=== PATIENT | male | born 1940 | race Caucasian/White ===

== ENCOUNTER 2023-09-02 12:09 | Outpatient (AMB) | payer OTHER, SELFPAY ==
--- NOTE | 2023-09-02 12:11 | MHC.OFFVIS ---
Intake Vital Signs 09/02/23 12:12 Height 5 ft 5 in Weight 206 lb BMI 34.3 BP 149/74 H Blood Pressure Location Rt brachial Position Sitting Pulse 57 Pulse Source Monitor Intake Visit Reasons: difficulty swallowing Intake Note: Patient states having trouble swallowing has been off and on for a couple years. He is having trouble eating and scared he might choke, less appetite. 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 Accompanied by his daughter Barbara. Reports that has had intermittent dysphagia for almost 10 years now and used to get endoscopic dilations back at [facility] - last one was > 5 years ago. Trouble is mostly with solids. Able to drink liquids fine. Gags with some certain solids but no vomiting. Has been avoiding certain foods brennen meat to avoid food obstruction. Had some weight loss around 5-6 lbs in 3 months. Patient previously used to get care at [facility], then moved to [place] for a couple of years, and has only returned 6 months ago. Some medical history is unclear, including indication for Eliquis. Daughter mentions patient has a history of stroke and was started on Eliquis thereafter ? AFib. He also has coronary artery disease with history of coronary stent placement, but has not established care with a outside solar sales consultant locally yet. [facility] Medical History (Updated 09/02/23 @ 12:49 by Samara Briscoe MD) Chronic anticoagulation Peripheral vascular disease HIV disease Review of Systems Const All systems reviewed & are unremarkable except as noted in HPI and below Physical Exam Vital Signs: Last Vital Signs Pulse 57 09/02/23 12:12 BP 149/74 H 09/02/23 12:12 BMI result Body Mass Index 34.3 Const General: cooperative, healthy appearing and no acute distress Orientation/consciousness: patient oriented x3 Chest Chest palpation & inspection: normal inspection of the chest GI Inspection: Yes normal to inspection Neuro General: patient oriented x3 and gait normal Extrem General: Yes normal to inspection Assessment & Plan Assessment & Plan (1) Dysphagia: Code(s): R13.10 - Dysphagia, unspecified (2) Coronary artery disease: Code(s): I25.10 - Atherosclerotic heart disease of [place] coronary artery without angina pectoris Plan Ddx include esophageal stricture, web, ring, esophagitis, dysmotility, EoE. Plan: - Barium swallow - EGD - will need to be booked after seen and cleared by cardiology - Referral to Cards requested today Orders: Orders FL barium swallow Today R13.10 - Dysphagia, unspecified Complete Blood Count no Diff Today R13.10 - Dysphagia, unspecified Referrals Cardiology Referral I25.10 - Atherosclerotic heart disease of [place] coronary artery without angina pectoris Coding Level of Care Code New Pt Level 4 (74561) Diagnoses Dysphagia R13.10 Coronary artery disease I25.10
[2023-09-02 12:12] VITALS: BP 149/74; PULSE 57; BMI 34.3
== END 2023-09-02 13:11 | disposition home or self-care (01) ==
PROVIDERS: PCP Physician Assistant; Visit Provider Internal Medicine
DX: R13.10 Dysphagia, unspecified (principal); I25.10 Atherosclerotic heart disease of native coronary artery without angina pectoris
CPT/HCPCS: 99204

== ENCOUNTER → 2023-09-02 12:09 | Outpatient (BNVA) | payer OTHER, SELFPAY | PROVIDERS: PCP Physician Assistant; Visit Provider Internal Medicine | DX: I25.10 Atherosclerotic heart disease of native coronary artery without angina pectoris (principal); R13.10 Dysphagia, unspecified | CPT/HCPCS: 99202 ==

== ENCOUNTER 2023-09-21 13:51 | Outpatient (AMB) | payer OTHER, SELFPAY ==
--- NOTE | 2023-09-21 13:52 | A.OFFVIS_ITS ---
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 Required: No Accompanied by: Daughter Allergies No Known Allergies Allergy (Verified 09/21/23 13:56) Medication List - Last Reconciled 09/21/23 by Joseph Shafer MD albuterol sulfate 90 mcg/actuation inhalation apixaban (Eliquis) 5 mg PO BID aspirin 81 mg PO DAILY benzonatate 100 mg PO TID PRN lyypmiban-kfuttzgk-igurfgz ala 50-200-25 mg (Biktarvy) 1 tab PO DAILY bimatoprost 0.01% (Lumigan) drps ophthalmic (eye) brimonidine-timolol 0.2-0.5 % drps ophthalmic (eye) ezetimibe 10 mg PO DAILY hydroxyzine HCl 25 mg PO TID metoprolol succinate ER 25 mg PO DAILY montelukast 10 mg PO DAILY nitroglycerin mg sublingual omega 5-xjo-gvl-fish oil 300-1,000 mg (Fish Oil) caps PO omeprazole 40 mg PO DAILY prednisone 20 mg PO BID rosuvastatin 40 mg PO DAILY sennosides (senna) 17.2 mg PO DAILY HPI HPI Comments History of Present Illness Details Mor is here for consultation regarding coronary disease. It seems that he used to live locally but then moved to [place] for a few years and then back again here. He is presenting with his daughter. [facility] records reviewed. History of coronary disease. In 2013, he had anterior STEMI. Underwent cardiac catheterization and LAD stenting. He also had residual disease in the circumflex and right coronary artery. Also described to have peripheral arterial disease. Other comorbidities including hypertension, high lipids and HIV. He also has atrial flutter on anticoagulation. Overall, generally feels okay. He does get some discomfort in the chest randomly, could be GI but not clear. However, not clear for exertional angina. 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 He has been seen by GI for dysphagia and needs workup for the same. They requested cardiology clearance. [facility] Medical History (Updated 09/21/23 @ 14:35 by Joseph Shafer MD) Chronic anticoagulation Peripheral vascular disease HIV disease Surgical History (Updated 09/21/23 @ 13:57 by Capri Olson) Hx of cardiac catheterization Family History (Updated 09/21/23 @ 13:58 by Capri Olson) Mother No problems noted. Father No problems noted. Social History (Updated 09/21/23 @ 13:58 by Capri Olson) Alcohol intake: current Alcohol intake frequency: holidays/special occasions only Patient Tobacco Use Status: Never used Tobacco Review of Systems Const Denies weakness Eyes Denies loss of vision ENT Denies dizziness Card Denies chest pain, Denies chest pain with activity, Denies syncope, Denies rapid heart rate, Denies pedal edema, Denies edema, Denies leg edema, Denies lightheadedness, Denies palpitations, Denies dyspnea, Denies dyspnea on exertion and Denies orthopnea Resp Denies cough, Denies dyspnea, Denies dyspnea on exertion and Denies wheezing GI Denies hematochezia and Denies change in stool character Denies hematuria, Denies dysuria and Denies urinary frequency Musc Denies abnormal gait, Denies muscle cramps, Denies muscle weakness, Denies numbness, Denies radiating pain into limb and Denies tingling Skin/Breast Denies nail changes and Denies rash Neuro Denies Abnormal speech present, Denies abnormal gait, Denies dizziness, Denies syncope, Denies loss of vision, Denies memory loss, Denies numbness, Denies tingling and Denies weakness Psych Denies depression and Denies memory loss Endo Denies palpitations Aller/Immun Denies wheezing Physical Exam Vital Signs: Last Vital Signs Pulse 77 09/21/23 13:55 BP 130/80 09/21/23 13:55 BMI result Body Mass Index 34.5 Const General: comfortable and no acute distress Orientation/consciousness: patient oriented x3 HEENT Other: Unremarkable Head: Yes normal to inspection Neck Neck: Yes normal visual inspection Chest Chest palpation & inspection: normal inspection of the chest Resp Auscultation: clear to auscultation bilaterally Cardio Palpation: normal PMI Heart sounds: S1 normal heart sound present, S2 normal heart sound present, no gallops, no murmurs and no rubs GI Palpation (GI): Soft to palpation Back/Spine/Pelvis Other: unremarkable Skin General skin exam: no rashes or lesions noted Neuro General: patient oriented x3 Speech: No Abnormal speech present Extrem General: Yes normal to inspection Psych Mental Status: mental status grossly normal Office Procedures EKG Details: EKG with atrial flutter at 77/Min; right bundle-branch block pattern; old anterolateral/inferior infarct. [id number], Complete Assessment & Plan Assessment & Plan (1) Coronary artery disease: Code(s): I25.10 - Atherosclerotic heart disease of [place] coronary artery without angina pectoris Qualifiers: Associated angina: without angina Coronary Disease-Associated Artery/Lesion type: [place] artery Plan: Cardiac catheterization reviewed from 2013. Proximal LAD with 100% stenosis, status post PCI. Mid LAD had 40% stenosis. Mid circumflex with 70% stenosis and RCA with 50% stenosis. Clinically, no overt anginal-type symptoms. We will get an echocardiogram for cardiac function. Will need to get records from [place], including any recent ischemic workup with stress test extra. (2) Atrial flutter by electrocardiogram: Code(s): I48.92 - Unspecified atrial flutter Plan: Rate controlled on EKG. For meds, he is on metoprolol and Eliquis. No changes. Plan Will need to be review [place] records. Orders: Orders CA echo transthoracic complete Today I25.10 - Atherosclerotic heart disease of [place] coronary artery without angina pectoris, I48.92 - Unspecified atrial flutter Coding Level of Care Code New Pt Level 4 (37354) Diagnoses Coronary artery disease I25.10 Associated angina: without angina Coronary Disease-Associated Artery/Lesion type: [place] artery Atrial flutter by electrocardiogram I48.92 CPT Codes EKG - CPT: 09838-[id number], Complete ([id number])
[2023-09-21 13:55] VITALS: BP 130/80; PULSE 77; BMI 34.5
== END 2023-09-21 14:32 | disposition home or self-care (01) ==
PROVIDERS: PCP Physician Assistant; Visit Provider Internal Medicine
DX: I25.10 Atherosclerotic heart disease of native coronary artery without angina pectoris (principal); I48.92 Unspecified atrial flutter
CPT/HCPCS: 93010; 99204

== ENCOUNTER → 2023-09-21 13:51 | Outpatient (BNVA) | payer OTHER, SELFPAY | PROVIDERS: PCP Physician Assistant; Visit Provider Internal Medicine | DX: I25.10 Atherosclerotic heart disease of native coronary artery without angina pectoris (principal); I48.92 Unspecified atrial flutter | CPT/HCPCS: 93005; 99202 ==

== ENCOUNTER → 2023-10-14 08:55 | Outpatient (REF) | payer OTHER, SELFPAY ==
--- NOTE | 2023-10-14 08:58 | CA_ITS ---
Transthoracic Echocardiogram Patient (Last, First, Middle): Mor Martinez, Gender: Male Date of : 1940 Age: 82 Procedure Date: 10/14/2023 Procedure Type: Transthoracic Echocardiogram Location: OP Height: 162.56 cm Weight: 90.72 kg BSA: 1.96 m2 Heart Rate: bpm BP: 110 / 60 mmHg Excel Expert: LILLIE Referring MD: Joseph Shafer MD Symptoms: I25.10 - Atherosclerotic heart disease of [place] coronary artery without... Study Quality: Adequate w contrast Conclusions: - Normal left ventricular cavity size. There is moderately increased left ventricular wall thickness. The left ventricular systolic function is borderline reduced. The visually estimated ejection fraction is between 45-50%. - The apical anterior segment is hypokinetic. - The apex, apical septum, and mid anteroseptal segments are akinetic. - Mildly increased right ventricular cavity size. There is borderline right ventricular systolic function. - There is mild dilatation of the ascending aorta measuring 3.70 cm. Findings Procedure Information Contrast agent, definity, is being given per protocol without apparent complications. Left Ventricle Normal left ventricular cavity size. There is moderately increased left ventricular wall thickness. The left ventricular systolic function is borderline reduced. The visually estimated ejection fraction is between 45 50%. There is evidence of regional wall motion abnormalities. Abnormal diastolic function is noted. Spectral Doppler is indicative of an impaired relaxation filling pattern. Elevated filling pressures. Wall Motion Rest Echo Findings The apical anterior segment is hypokinetic. The apex, apical septum, and mid anteroseptal segments are akinetic. Right Ventricle Mildly increased right ventricular cavity size. There is borderline right ventricular systolic function. Atria The left atrium is mildly dilated. The right atrium is mildly dilated. Aortic Valve There is a normal trileaflet aortic valve. There is no aortic valve stenosis. There is trace (trivial) aortic valve regurgitation. Mild to moderate calcification of aortic valve. Mitral Valve There is mild mitral annular calcification. There is trace mitral valve regurgitation. There is no mitral valve stenosis. Pulmonic Valve Normal pulmonic valve structure and function. There is no pulmonic valve regurgitation. Tricuspid Valve Normal tricuspid valve structure. There is no tricuspid valve regurgitation. Tricuspid regurgitation envelope is inadequate for calculation of right ventricular systolic pressure. Normal right atrial pressure. Great Vessels There is mild dilatation of the ascending aorta measuring 3.70 cm. The visualized portions of the pulmonary artery and branches are normal. Venous The inferior vena cava is normal in size and collapses greater than 50% with inspiration. Pericardium/Pleural There is no evidence of pericardial effusion. Prior Study Comparison No prior study available for comparison. Measurements 2D Linear Measurements IVSd: 1.34 0.6-0.9/0.6-1.0 cm LVIDd: 4.60 3.9-5.3/4.2-5.9 cm LVIDd Index: 2.35 2.4-3.2/2.2-3.1 cm/m2 LVIDs: 3.24 2.0-3.6 cm LVPWd: 1.58 0.7-1.1 cm LA Diam: 4.80 2.7-3.8/3.0-4.0 cm LAIDs Index: 2.45 1.5-2.3 cm/m2 LV Mass: 341.04 67-162/88-224 g LV Mass Index: 174.00 43-95/49-115 g/m2 LVOT Diam: 2.10 3.0+(-)1.3 cm 2D Systolic Function EF 4C: 52.80 >55% EF 2C: 43.00 >55% EF BiP: 49.80 >55% Mitral Valve MV Pk E: 0.75 MV PK A: 0.80 MV Decel Time: 257.00 E/A: 0.90 E'Lateral: 5.26 E'Medial: 3.48 E/E' Med: 21.60 E/E' Lat: 14.30 PHT: 75.00 MVA PHT: 2.93 Decel [place]: 2.91 Aortic Valve AoV Pk Guevara: 1.88 AoV Mn Guevara: 1.33 AoV VTI: 0.41 AoV Pk Grad: 14.00 Aov Mn Grad: 8.00 DARLINE Cont.VTI: 2.53 LVOT LVOT Pk Guevara: 1.36 LVOT Mn Guevara: 0.90 LVOT VTI: 0.30 LVOT Pk Grad: 7.00 LVOT Mn Grad: 4.00 LVOT Diam: 2.10 LVOT Area: 3.46 Diastolic Function MV Pk E: 0.75 MV Pk A: 0.80 E/A: 0.90 E'Medial: 3.48 E/E' Med: 21.60 E' Laterial: 5.26 E/E' Lat: 14.30 Right Ventricle TAPSE (mm): 19.30 TVS' Guevara: 9.67 Great Vessels Aorta Sinus of Valsalva: 3.60 2.0-3.5 cm Ao Asc: 3.70 2.1-3.4 cm Pulmonary Valve PV Pk Guevara: 0.81 Peak PV Grad: 3.00 Updated in Other Vendor System with Status of Final Ajit Swift MD electronically signed on 10/19/2023 3:25:02 PM with status of Final
== END ==
LOC: HO.CARD 08:55
PROVIDERS: Visit Provider Internal Medicine
DX: I25.10 Atherosclerotic heart disease of native coronary artery without angina pectoris (principal); I48.92 Unspecified atrial flutter
CPT/HCPCS: 93306; Q9957

== ENCOUNTER → 2023-10-14 08:58 | Outpatient (BNV) | payer OTHER, SELFPAY | PROVIDERS: Visit Provider Internal Medicine Cardiovascular Disease | DX: I25.10 Atherosclerotic heart disease of native coronary artery without angina pectoris (principal) | CPT/HCPCS: 93306 ==

== ENCOUNTER 2023-10-19 14:41 | Outpatient (AMB) | payer OTHER, SELFPAY ==
--- NOTE | 2023-10-19 14:48 | A.OFFVIS_ITS ---
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 Accompanied by: Daughter Allergies No Known Allergies Allergy (Verified 10/19/23 14:48) Medication List - Last Reconciled 10/19/23 by Joseph Shafer MD albuterol sulfate 90 mcg/actuation inhalation apixaban (Eliquis) 5 mg PO BID aspirin 81 mg PO DAILY benzonatate 100 mg PO TID PRN dwecrtcqb-jsidcybi-axpkhvj ala 50-200-25 mg (Biktarvy) 1 tab PO DAILY bimatoprost 0.01% (Lumigan) drps ophthalmic (eye) brimonidine-timolol 0.2-0.5 % drps ophthalmic (eye) ezetimibe 10 mg PO DAILY hydroxyzine HCl 25 mg PO TID metoprolol succinate ER 25 mg PO DAILY montelukast 10 mg PO DAILY nitroglycerin mg sublingual omega 8-dwf-ajd-fish oil 300-1,000 mg (Fish Oil) caps PO omeprazole 40 mg PO DAILY prednisone 20 mg PO BID rosuvastatin 40 mg PO DAILY sennosides (senna) 17.2 mg PO DAILY HPI HPI Comments History of Present Illness Details Mor returns for follow-up. History of coronary disease. He used to live locally, but then moved to [place] for a few years and then back again here. He is presenting with his daughter. [facility] records reviewed. In 2012, he had anterior STEMI. Underwent cardiac catheterization and LAD stenting. He also had residual disease in the circumflex and right coronary artery. Also described to have peripheral arterial disease. Other comorbidities including hypertension, high lipids and HIV. He also has atrial flutter on anticoagulation. For the most part, he is feeling fine. They deny any complaints like angina. He has been seen by GI for dysphagia and needs workup for the same. They requested cardiology clearance. Since last visit, he has completed an echocardiogram. [facility] Medical History (Updated 10/19/23 @ 15:46 by Joseph Shafer MD) Chronic anticoagulation Peripheral vascular disease HIV disease Surgical History Hx of cardiac catheterization Family History Mother No problems noted. Father No problems noted. Social History Alcohol intake: current Alcohol intake frequency: holidays/special occasions only Patient Tobacco Use Status: Never used Tobacco Review of Systems Const Denies weakness ENT Denies dizziness Card Denies chest pain, Denies chest pain with activity, Denies syncope, Denies rapid heart rate, Denies pedal edema, Denies edema, Denies leg edema, Denies lightheadedness, Denies palpitations, Denies dyspnea, Denies dyspnea on exertion and Denies orthopnea Resp Denies cough, Denies dyspnea and Denies dyspnea on exertion GI Denies hematochezia and Denies change in stool character Musc Denies abnormal gait, Denies muscle cramps, Denies muscle weakness, Denies numbness, Denies radiating pain into limb and Denies tingling Neuro Denies abnormal gait, Denies dizziness, Denies syncope, Denies numbness, Denies tingling and Denies weakness Endo Denies palpitations Physical Exam Vital Signs: Last Vital Signs Pulse 68 10/19/23 14:49 BP 128/76 10/19/23 14:49 BMI result Body Mass Index 34.1 Const General: comfortable and no acute distress Orientation/consciousness: patient oriented x3 HEENT Other: Unremarkable Head: Yes normal to inspection Neck Neck: Yes normal visual inspection Chest Chest palpation & inspection: normal inspection of the chest Resp Auscultation: clear to auscultation bilaterally Cardio Palpation: normal PMI Heart sounds: S1 normal heart sound present, S2 normal heart sound present, no gallops, no murmurs and no rubs GI Palpation (GI): Soft to palpation Back/Spine/Pelvis Other: unremarkable Skin General skin exam: no rashes or lesions noted Neuro General: patient oriented x3 Extrem General: Yes normal to inspection Psych Mental Status: mental status grossly normal Assessment & Plan Assessment & Plan (1) Coronary artery disease: Code(s): I25.10 - Atherosclerotic heart disease of [place] coronary artery without angina pectoris Qualifiers: Coronary Disease-Associated Artery/Lesion type: [place] artery Associated angina: without angina Plan: Cardiac catheterization reviewed from 2012. Proximal LAD with 100% stenosis, status post PCI. Mid LAD had 40% stenosis. Mid circumflex with 70% stenosis and RCA with 50% stenosis. Per [place] records, another cardiac catheterization in 2020-multivessel CAD with moderate plaque in the mid to distal LAD; diffuse stenosis in OM2/OM3; borderline stenosis proximal RCA. FFR negative for OM2, OM3, mid RCA. In the distal LAD, FFR was 0.86. Clinically, he does not have any angina. Echocardiogram shows mild LV dysfunction and wall motion abnormalities related to prior LAD territory infarction. For medications, remains on aspirin, beta-blockers, high-dose statins. We will request labs from his PCP. (2) Atrial flutter by electrocardiogram: Code(s): I48.92 - Unspecified atrial flutter Plan: Rate controlled on EKG. For meds, he is on metoprolol and Eliquis. No changes. (3) Preoperative cardiovascular examination: Code(s): Z01.810 - Encounter for preprocedural cardiovascular examination Plan: May proceed with GI workup. Low to intermediate cardiac risk. If necessary, may hold Eliquis for the last 4 doses prior to procedure. Plan Discussed with daughter who came for appointment. Coding Level of Care Code Est Pt Level 4 (86571) Diagnoses Coronary artery disease I25.10 Coronary Disease-Associated Artery/Lesion type: [place] artery Associated angina: without angina Atrial flutter by electrocardiogram I48.92 Preoperative cardiovascular examination Z01.810
[2023-10-19 14:49] VITALS: BP 128/76; PULSE 68; BMI 34.1
== END 2023-10-19 15:10 | disposition home or self-care (01) ==
PROVIDERS: PCP Physician Assistant; Visit Provider Internal Medicine
DX: I25.10 Atherosclerotic heart disease of native coronary artery without angina pectoris (principal); I48.92 Unspecified atrial flutter; Z01.810 Encounter for preprocedural cardiovascular examination
CPT/HCPCS: 99214

== ENCOUNTER → 2023-10-19 14:41 | Outpatient (BNVA) | payer OTHER, SELFPAY | PROVIDERS: PCP Physician Assistant; Visit Provider Internal Medicine | DX: Z01.810 Encounter for preprocedural cardiovascular examination (principal); I48.92 Unspecified atrial flutter; I25.10 Atherosclerotic heart disease of native coronary artery without angina pectoris; I10 Essential (primary) hypertension; I25.2 Old myocardial infarction; E78.41 Elevated Lipoprotein(a); B20 Human immunodeficiency virus [HIV] disease; Z79.01 Long term (current) use of anticoagulants | CPT/HCPCS: 99212 ==

== ENCOUNTER 2023-11-07 08:32 | Outpatient (REF) | payer OTHER, SELFPAY ==
--- NOTE | ~2023-11-07 | FL_ITS ---
EXAMINATION: XR FLUOROSCOPY UPPER GI WITH AIR CLINICAL INFORMATION: Dysphagia. Reflux. COMPARISON: None TECHNIQUE: Fluoroscopic air contrast upper GI examination was performed utilizing standard techniques with thin and thick barium and effervescent granules. Numerous spot images were obtained. FINDINGS: Lateral cine images of the oropharynx and hypopharynx demonstrate normal swallow mechanism with normal epiglottic inversion and soft palate elevation. There is trace tracheal penetration with thick barium. No tracheal penetration, glottic or subglottic aspiration identified. No nasopharyngeal reflux present. Hypopharyngeal structures appear normal without evidence of mass or diverticulum. There was no significant cricopharyngeal achalasia. Dual and single contrast images of the esophagus demonstrate normal caliber, contour, and mucosal pattern. No evidence of stricture, mass, or ulcerations identified. There is to and fro motion of the barium column. 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 A moderate-sized type I hiatal hernia is present. No significant gastroesophageal reflux was seen during the course of the examination and on reflux views. Dual contrast and single contrast images of the stomach demonstrated a normal contour. There are multiple tiny areas of contrast pooling in the fundus and body the stomach. There is thickening of the areae gastricae within the fundus and proximal body. No masses or other abnormalities are seen. Contrast freely passed into the gastric antrum and duodenal bulb without delay. Single and air-contrast images of the duodenal bulb demonstrate no abnormality. The duodenal sweep has a normal appearance, course, and mucosal fold appearance. No malrotation. The imaged proximal jejunum has a normal fold pattern and caliber. FLUOROSCOPY TIME: 3 minutes 45 seconds Number of Spot Images: 5 Number of Cine: 11 DOSE AREA PRODUCT: 2854 uGy-m2 (microgray-meter squared) FL/FL barium swallow IMPRESSION: 1. Trace laryngeal penetration with thick barium 2. To and fro motion of barium column noted in the esophagus. 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 3. Moderate-sized type I hiatal hernia 4. Multiple tiny areas of contrast pooling in the fundus and body the stomach that may represent small superficial aphthous ulcers. Recommend correlation with EGD. This procedure was performed by Darius Hayward PA-C, and supervised by Dr. Galan
== END 2023-11-07 08:33 | disposition home or self-care (01) ==
LOC: HO.XRAY 08:32
PROVIDERS: PCP Physician Assistant; Visit Provider Internal Medicine
DX: R13.10 Dysphagia, unspecified (principal)
CPT/HCPCS: 74220

== ENCOUNTER → 2023-11-07 08:33 | Outpatient (BNV) | payer OTHER, SELFPAY | PROVIDERS: PCP Physician Assistant; Visit Provider Physician Assistant Surgical | DX: R13.10 Dysphagia, unspecified (principal) | CPT/HCPCS: 74246 ==

== ENCOUNTER 2023-11-18 13:37 | Outpatient (AMB) | payer OTHER, SELFPAY ==
--- NOTE | 2023-11-18 13:39 | MHC.OFFVIS ---
Vital Signs 11/18/23 13:41 Height 5 ft 5 in Weight 209 lb 7.026 oz BMI 34.8 BP 118/60 Blood Pressure Location Lt brachial Position Sitting Pulse 66 Intake Visit Reasons: follow up BS results Intake Note: Mor presents in the office as a follow up BA swallow. CC: States that he is having all the same concerns. He does not sleep, loss of appetite, coughing up phlegm. Allergies No Known Allergies Allergy (Verified 11/18/23 13:41) HPI Comments Details: This is an 82 y.o M with PMH of CAD, PAD, HIV, ?AFib on eliquis, who is here for recurrent dysphagia. Accompanied by his daughter Barbara. Reports that has had intermittent dysphagia for almost 10 years now and used to get endoscopic dilations back at [facility] - last one was > 5 years ago. Trouble is mostly with solids. Able to drink liquids fine. Gags with some certain solids but no vomiting. Has been avoiding certain foods brennen meat to avoid food obstruction. Had some weight loss around 5-6 lbs in 3 months. Patient previously used to get care at [facility], then moved to [place] for a couple of years, and has only returned 6 months ago. Some medical history is unclear, including indication for Eliquis. Daughter mentions patient has a history of stroke and was started on Eliquis thereafter ? AFib. He also has coronary artery disease with history of coronary stent placement, but has not established care with a antenna engineer locally yet. 11/18/23: Here with his daughter. Cardiac work up completed - intermediate risk for GI procedures. Pt's daughter report pt has significant regurgitation brennen at night time. Constantly clearing throat. Barium swallow reviewed. Has dysmotility based on barium swallow. [facility] Medical History Chronic anticoagulation Peripheral vascular disease HIV disease Surgical History Hx of cardiac catheterization Family History Mother No problems noted. Father No problems noted. Social History Alcohol intake: current Alcohol intake frequency: holidays/special occasions only Patient Tobacco Use Status: Never used Tobacco Physical Exam Vital Signs: Last Vital Signs Pulse 66 11/18/23 13:41 BP 118/60 11/18/23 13:41 BMI result Body Mass Index 34.8 NAD Nonicteric No overt resp distress Abd soft mildly distended A/Ox3, normal gait Assessment & Plan Assessment & Plan (1) Dysphagia: Code(s): R13.10 - Dysphagia, unspecified Category: Medical (2) Esophageal dysmotility: Code(s): K22.4 - Dyskinesia of esophagus Category: Medical (3) Atrial flutter by electrocardiogram: Code(s): I48.92 - Unspecified atrial flutter Category: Medical (4) Gastritis: Code(s): K29.70 - Gastritis, unspecified, without bleeding Category: Medical Plan REviewed that based on Barium swallow - sx appear more consistent with esophageal dysmotility. CT chest ordered by his PCP for any extrinsic causes. Will proceed with EGD for luminal eval. Plan: - EGD to be booked - Pt aware to hold eliquis x 2 days prior to the procedure - CT chest pending Follow up after scope Coding Level of Care Code Est Pt Level 4 (46825) Diagnoses Dysphagia R13.10 Esophageal dysmotility K22.4 Atrial flutter by electrocardiogram I48.92 Gastritis K29.70
[2023-11-18 13:41] VITALS: BP 118/60; PULSE 66; BMI 34.8
== END 2023-11-18 14:23 | disposition home or self-care (01) ==
PROVIDERS: PCP Physician Assistant; Visit Provider Internal Medicine
DX: R13.10 Dysphagia, unspecified (principal); K22.4 Dyskinesia of esophagus; I48.92 Unspecified atrial flutter; K29.70 Gastritis, unspecified, without bleeding
CPT/HCPCS: 99214

== ENCOUNTER → 2023-11-18 13:37 | Outpatient (BNVA) | payer OTHER, SELFPAY | PROVIDERS: PCP Physician Assistant; Visit Provider Internal Medicine | DX: R13.10 Dysphagia, unspecified (principal); K22.4 Dyskinesia of esophagus; K29.70 Gastritis, unspecified, without bleeding; I48.92 Unspecified atrial flutter | CPT/HCPCS: 99212 ==

== ENCOUNTER 2024-03-07 10:08 | Day surgery (SDC) | payer OTHER, SELFPAY ==
--- NOTE | 2024-03-07 11:02 | MHC.SHP ---
Pre-Procedural Eval Section A - 24 Hr Update-Section A only Date of Service: 03/07/24 Section B - Complete if H&P > 30 days Chief Complaint: Dyskinesia of esophagus,dysphagia,gastritis Relevant Family History (Specify if Yes): No Relevant Social History: None Present Medications: see Short Stay Collaborative assessment Medical History: Significant History ( Chronic anticoagulation Peripheral vascular disease HIV disease) History of Previous Operations: Relevant previous surgery/procedure and date(s) (Hx of cardiac catheterization) Allergies: Allergies Allergy/AdvReac Type Severity Reaction Status Date / Time No Known Allergies Allergy Verified 11/18/23 13:41 Review of Systems Sugical H&P ROS: Negative: Constitution, Cardiovascular, Respiratory, Neurological, Psychiatric, Hem-Onc, Allergic/Immunologic, Gastrointestinal, Genitourinary, Musculoskeletal, Integumentary, Endocrine and Eyes/Ears/Nose/Throat Exam Surgical H&P Exam: Normal: HEENT, Normal: Heart, Normal: Lungs, Normal: Extremities, Normal: Abdomen, Normal: Skin and Normal: Neurological Plan Diagnosis/Plan: Unchanged I have reviewed the history and physical and performed a pertinent physical examination on my patient. No changes have occurred unless specified. Time Spent With Patient Time: Total time managing care of this patient today ____ minutes.
[2024-03-07 11:18] VITALS: BMI 31.5
[2024-03-07 11:22] VITALS: BP 165/59; PULSE 70; RESP 18; TEMP 36.5; O2SAT 98
[2024-03-07] MEDS: Lactated Ringers 1,000 ML 100 ML IVCONT (11:38)
--- NOTE | 2024-03-07 11:38 | P.CONAN_ITS ---
[facility] Active Problems Active Problems: All Active Problems Gastritis (Acute) Esophageal dysmotility (Acute) Preoperative cardiovascular examination (Acute) Atrial flutter by electrocardiogram (Acute) Coronary artery disease (Acute) Dysphagia (Acute) Past Medical History Medical History Chronic anticoagulation Peripheral vascular disease HIV disease Family History Family History Mother No problems noted. Father No problems noted. Family history of problems with anesthesia: No Surgical History Surgical History Hx of cardiac catheterization History of Problems with Anesthesia: No Social History Social History Alcohol intake: current Alcohol intake frequency: holidays/special occasions only Patient Tobacco Use Status: Never used Tobacco Use of substances other than those prescribed or required for medical reasons: No Are you DNR?: No Advance Directives: No Advance Directives Information Provided: Yes Meds Allergies Allergy/AdvReac Type Severity Reaction Status Date / Time No Known Allergies Allergy Verified 11/18/23 13:41 Active Medications: Current Medications Lactated Ringer's (Lr) 1,000 mls @ 100 mls/hr IVCONT .Q10H FRANCISCA Home Medications ?Medication ?Instructions ?Recorded ?Confirmed ?Last Taken ?Type albuterol sulfate 90 mcg/actuation inhalation 09/02/23 10/19/23 Unknown History aerosol inhaler apixaban 5 mg tablet (Eliquis) 5 mg PO BID 09/02/23 10/19/23 03/03/24 History aspirin 81 mg tablet,delayed 81 mg PO DAILY 09/02/23 10/19/23 Unknown History release benzonatate 100 mg capsule 100 mg PO TID PRN cough 09/02/23 10/19/23 Unknown History bictegravir 50 mg-emtricitabine 1 tab PO DAILY 09/02/23 10/19/23 Unknown History 200 mg-tenofovir alafenam 25 mg tablet (Biktarvy) bimatoprost 0.01 % eye drops drp ophthalmic (eye) 09/02/23 10/19/23 Unknown History (Jannet) brimonidine 0.2 %-timolol 0.5 % drp ophthalmic (eye) 09/02/23 10/19/23 Unknown History eye drops ezetimibe 10 mg tablet 10 mg PO DAILY 09/02/23 10/19/23 Unknown History hydroxyzine HCl 25 mg tablet 25 mg PO TID 09/02/23 10/19/23 Unknown History metoprolol succinate 25 mg 25 mg PO DAILY 09/02/23 10/19/23 Unknown History tablet,extended release 24 hr montelukast 10 mg tablet 10 mg PO DAILY 09/02/23 10/19/23 Unknown History nitroglycerin 0.4 mg sublingual mg sublingual 09/02/23 10/19/23 Unknown History tablet omega 6-aaq-svp-fish oil 300 cap PO 09/02/23 10/19/23 Unknown History mg-1,000 mg capsule (Fish Oil) omeprazole 40 mg capsule,delayed 40 mg PO DAILY 09/02/23 10/19/23 Unknown History release prednisone 20 mg tablet 20 mg PO BID 09/02/23 10/19/23 Unknown History rosuvastatin 40 mg tablet 40 mg PO DAILY 09/02/23 10/19/23 Unknown History sennosides 8.6 mg tablet (senna) 17.2 mg PO DAILY 09/02/23 10/19/23 Unknown History Exam Height,Weight and Vital Signs: Height 5 ft 6 in Weight 88.451 kg Last Vital Signs Temp 97.7 F 03/07/24 11:22 Pulse 70 03/07/24 11:22 Resp 18 03/07/24 11:22 BP 165/59 H 03/07/24 11:22 Pulse Ox 98 03/07/24 11:22 O2 Del Method Room Air 03/07/24 11:22 Airway Mallampati Class: III TM Dist: >3cm Neck ROM: Full Denture: Lower Partial: Upper Assessment and Plan Assessment Anesthesia Assessment: Anesthesia Plan Discussed and Chart Reviewed Final Anesthetic Review Family History of Problems with Anesthesia: No History of Problems with Anesthesia: No NPO: Yes ASA Class: III Final Preanesthetic Review: No Changes in Pt Med Stat, Meds/Allgs Chart Reviewed, Consent Obtained/Reviewed and Anes Risks/Benef Reviewed Patient Risk: Intermediate Procedure Risk: Low Anesthetic Plan Anesthetic Plan: TIVA Disposition: Standard PACU
--- NOTE | 2024-03-07 11:57 | W.PM.OPN ---
Operative Note Operative Note Date of Service: 03/07/24 Narrative: Procedure Description: EGD Indication: dysphagia Anesthesia: MAC FLEXIBLE TRANSORAL UPPER GASTROINTESTINAL ENDOSCOPY UPPER ENDOSCOPY Consent: Indications for the procedure and potential complications of bleeding, perforation, reaction to medications and missed diagnosis were discussed with the patient and informed consent was obtained. Instrument: Olympus GIF H 190 J mid size upper endoscope Monitoring: Vital signs and clinical assessment, continuous EKG monitoring, Pulse oximetry, Carbon Dioxide monitoring and blood pressure monitoring were done throughout the procedure. Procedure: The patient was placed in the left lateral decubitis position and pre-procedure medications were administered and a bite block was placed. The endoscope was inserted into the mouth and advanced under direct vision to the third part of duodenum. A careful inspection was made as the upper endoscope was withdrawn including a retroflexed examination of the proximal stomach; Findings and interventions are described below. Findings: Larynx:normal Esophagus: GE junction at 37 cm, diaphragm hiatus at 44 cm, consistent with 7 cm fixed hiatal hernia, with schatzki ring noted. The ring was dilated to 20 mm with small tear noted and then UES dilated to 20 mm, no tear seen. random esophageal bx taken Stomach: streaky gastritis . Biopsies were obtained. Grade 2 flap valve on retroflexed examination of the cardia. Duodenum: Normal bulb and descending duodenum, Intervention: Biopsies as noted above, balloon dilation Impression/Findings: gastritis hiatal hernia schatzki ring PLAN: await bx GERD precautions can restart eliquis tomorrow
[2024-03-07 12:05] VITALS: BP 95/51; PULSE 74; RESP 15; TEMP 36.3; O2SAT 95
[2024-03-07 12:29] VITALS: BP 139/83; PULSE 59; RESP 18; TEMP 36.1; O2SAT 100
== END 2024-03-07 13:38 | disposition home or self-care (01) ==
PROVIDERS: PCP Physician Assistant; Visit Provider Internal Medicine Gastroenterology
PROC: (CPT 43249; principal; 2024-03-07 12:50)
DX: K22.4 Dyskinesia of esophagus (principal); K22.2 Esophageal obstruction; K29.70 Gastritis, unspecified, without bleeding; K44.9 Diaphragmatic hernia without obstruction or gangrene; B20 Human immunodeficiency virus [HIV] disease; I73.9 Peripheral vascular disease, unspecified; I48.92 Unspecified atrial flutter; I25.10 Atherosclerotic heart disease of native coronary artery without angina pectoris; Z95.5 Presence of coronary angioplasty implant and graft; Z79.01 Long term (current) use of anticoagulants
CPT/HCPCS: 43249; 43239; 88305; 88342; C1726

== ENCOUNTER → 2024-03-07 10:08 | Outpatient (BNV) | payer OTHER, SELFPAY | PROVIDERS: PCP Physician Assistant; Visit Provider Internal Medicine Gastroenterology | DX: R13.10 Dysphagia, unspecified (principal); K22.2 Esophageal obstruction | CPT/HCPCS: 43249 ==

== ENCOUNTER 2024-03-23 | Outpatient (REF) | payer OTHER, SELFPAY ==
[2024-03-27 12:47] LABS: H Pylori Breath Test Negative (Negative)
== END 2024-03-26 08:43 | disposition home or self-care (01) ==
LOC: HO.LNP
PROVIDERS: PCP Physician Assistant; Visit Provider Internal Medicine Gastroenterology
DX: Z11.0 Encounter for screening for intestinal infectious diseases (principal)
CPT/HCPCS: 83013; 99211

== ENCOUNTER 2024-03-26 08:42 | Outpatient (AMB) | payer OTHER, SELFPAY ==
--- NOTE | 2024-03-26 08:57 | AM.OFFVISNUR ---
Intake Visit Reasons: H PYLORI Allergies No Known Allergies Allergy (Verified 11/18/23 13:41) Nursing Note Patient presents for collection of?H?Pylori?breath test. Patient has been fasting for 1 hour (nothing to eat, drink, no chewing gum or smoking) has not taken any antacid medication for at least 2 weeks and has no allergies to artificial sweeteners.?? Assessment & Plan Assessment & Plan (1) Gastritis: Code(s): K29.70 - Gastritis, unspecified, without bleeding Category: Medical (2) Dysphagia: Code(s): R13.10 - Dysphagia, unspecified Category: Medical Plan Patient presents for collection of?H?Pylori?breath test. Patient has been fasting for 1 hour (nothing to eat, drink, no chewing gum or smoking) has not taken any antacid medication for at least 2 weeks and has no allergies to artificial sweeteners.???This test checks for an overgrowth of bacteria in your stomach. We all have bacteria but some may have more than others. It is treatable. if the test comes back negative there is nothing else to do. If the test result is positive we will treat you with 2 antibiotics and a medication to decrease the acid in your stomach (PPI) for 2 weeks. Two weeks after you have completed the treatment we will retest you to make sure the overgrowth has resolved. Orders: Orders H Pylori Breath Test Today Patient Instructions: Process for specimen collection and reason for testing was explained to the patient. Specimen collection. Patient instructed to take a deep breath and then exhale into the blue bag, filling it up as much as possible. Patient instructed to drink a mixture of water and the artificial sweetener with a straw. A 15 minute wait period was observed. Patient instructed to take a deep breath and then exhale into the pink bag, filling it up as much as possible
== END 2024-03-26 09:13 | disposition home or self-care (01) ==
PROVIDERS: PCP Physician Assistant; Visit Provider Internal Medicine Gastroenterology
DX: K29.70 Gastritis, unspecified, without bleeding (principal); R13.10 Dysphagia, unspecified

== ENCOUNTER 2024-06-06 10:19 | Outpatient (AMB) | payer OTHER, SELFPAY ==
--- NOTE | 2024-06-06 10:24 | MHC.OFFVIS ---
Vital Signs 06/06/24 10:25 Height 5 ft 6 in Weight 200 lb 9.93 oz BMI 32.4 BP 132/62 Blood Pressure Location Lt brachial Position Sitting Pulse 63 Intake Visit Reasons: 3 mos FUV. Discuss meds + sx. Intake Note: Mor presents in the office as a 3 month follow up to discuss medications and symptoms. CC: Daughter states that after EGD was done he still had the same condition with no changes. Was put on Pantoprazole and the omeprazole was D/C and then put back on Omeprazole but still having the same concerns. Having issues with choking and especially at night. He is depressed because of the condition. He is embaressed of going places and having the choking / coughing fit. General Foundry Worker Required: Yes General Foundry Worker Name: daughter here with him Allergies No Known Allergies Allergy (Verified 06/06/24 10:24) HPI Comments Details: This is an 82 y.o M with PMH of CAD, PAD, HIV, ?AFib on eliquis, who is here for recurrent dysphagia. Accompanied by his daughter Barbara. Reports that has had intermittent dysphagia for almost 10 years now and used to get endoscopic dilations back at [facility] - last one was > 5 years ago. Trouble is mostly with solids. Able to drink liquids fine. Gags with some certain solids but no vomiting. Has been avoiding certain foods brennen meat to avoid food obstruction. Had some weight loss around 5-6 lbs in 3 months. Patient previously used to get care at [facility], then moved to [place] for a couple of years, and has only returned 6 months ago. Some medical history is unclear, including indication for Eliquis. Daughter mentions patient has a history of stroke and was started on Eliquis thereafter ? AFib. He also has coronary artery disease with history of coronary stent placement, but has not established care with a undergraduate advisor locally yet. 11/18/23: Here with his daughter. Cardiac work up completed - intermediate risk for GI procedures. Pt's daughter report pt has significant regurgitation brennen at night time. Constantly clearing throat. Barium swallow reviewed. Has dysmotility based on barium swallow. 03/07/24: EGD (Dr Valdez) 1. Gastritis 2. Hiatal hernia 3. Schatzki ring (balloon dil 20 mm) Path: A. Stomach, biopsy: Gastric antral mucosa with mild-moderate reactive changes and minimal chronic inactive gastritis; negative for intestinal metaplasia and dysplasia. B. Esophagus, random, biopsy: Squamous mucosa with no specific change; no columnar mucosa present 06/06/24: Here with daughter. Reports little improvement since dilation. Cont to have issues with coughing and choking after eating. Daughter also notes frequent coughing and spitting up at night time when he is trying to sleep. [facility] Medical History Chronic anticoagulation Peripheral vascular disease HIV disease Surgical History (Updated 06/06/24 @ 10:29 by SKYLAR Knapp) Hx of colonoscopy History of esophagogastroduodenoscopy (EGD) Hx of cardiac catheterization Family History Mother No problems noted. Father No problems noted. Social History Alcohol intake: current Alcohol intake frequency: holidays/special occasions only Patient Tobacco Use Status: Never used Tobacco Physical Exam Vital Signs: Last Vital Signs Pulse 63 06/06/24 10:25 BP 132/62 06/06/24 10:25 BMI result Body Mass Index 32.4 Assessment & Plan Assessment & Plan (1) Dysphagia: Code(s): R13.10 - Dysphagia, unspecified Category: Medical (2) Esophageal dysmotility: Code(s): K22.4 - Dyskinesia of esophagus Category: Medical Plan Reviewed that has combination of anatomic narrowing + dysmotility + likely pharyngoesophageal dysphagia based on XR esophagus. Extrinsic causes also on DDx. Was supposed to have CT chest but ? canceled. Plan: - Keep HOB elevated at night time 30-45 deg - MBS - ST eval based on results - Switch omeprazole to night time - Add flonase once daily for possible PND - CT chest reordered Follow up 3 months Orders: Orders FL Modified Barium Swallow Today R13.10 - Dysphagia, unspecified CT chest w IV con Today R13.10 - Dysphagia, unspecified Medications: New fluticasone propionate 50 mcg/actuation (Flonase Allergy Relief) administer into each nostril 2 sprays intranasal DAILY 30 days 16 grams 0RF Coding Level of Care Code Est Pt Level 4 (46922) Diagnoses Dysphagia R13.10 Esophageal dysmotility K22.4
[2024-06-06 10:25] VITALS: BP 132/62; PULSE 63; BMI 32.4
== END 2024-06-06 11:19 | disposition home or self-care (01) ==
PROVIDERS: PCP Physician Assistant; Visit Provider Internal Medicine
DX: R13.10 Dysphagia, unspecified (principal); K22.4 Dyskinesia of esophagus
CPT/HCPCS: 99214

== ENCOUNTER → 2024-06-06 10:19 | Outpatient (BNVA) | payer OTHER, SELFPAY | PROVIDERS: PCP Physician Assistant; Visit Provider Internal Medicine | DX: R13.10 Dysphagia, unspecified (principal); K22.4 Dyskinesia of esophagus | CPT/HCPCS: 99212 ==

== ENCOUNTER 2024-07-04 10:15 | Outpatient (REF) | payer OTHER, SELFPAY ==
--- NOTE | ~2024-07-04 | FL_ITS ---
EXAMINATION: Modified Barium Swallow CLINICAL INFORMATION: Dysphagia COMPARISON: None TECHNIQUE: Modified barium swallow was performed under lateral fluoroscopy with patient in standing position. Barium mixed with solids and liquids of different consistencies was administered by the speech pathologist. Examination was recorded in the fluoroscopy suite. FINDINGS: No laryngeal penetration or aspiration was observed with examination. There is mild cricopharyngeal achalasia present. FLUOROSCOPY TIME: 47 seconds Number of Spot Images: N/A DOSE AREA PRODUCT: 369.2 uGy-m2 (microgray-meter squared) FL/FL Modified Barium Swallow IMPRESSION: 1. No laryngeal penetration or aspiration was observed during this examination. 2. Mild cricopharyngeal achalasia. Refer to the speech therapy report for further clarification This procedure was performed by Darius Hayward PA-C, and supervised by Dr. Galan Electronically signed by: Carlos Galan MD 07/04/2024 04:22 PM [facility] [place]
--- NOTE | 2024-07-04 12:22 | MHC.SL.IMP ---
Date of Plan of Treatment: 07/04/24 Onset of Symptoms/Illness: 06/06/24 Date Treatment Started: 07/04/24 Admitting Diagnosis: Dysphagia Primary Speech & Language Diagnosis: Other Secondary Speech & Language Diagnosis: Other Reason for Today's Visit: 79128 Modified Barium Swallow Study Comments: Low Pre-evaluation Dietary Consistencies: Regular Pre-evaluation Liquid Consistency: Thin Pre-evaluation Medication Administration: Whole with Liquid Medical History: Comments: Medical History Chronic anticoagulation Peripheral vascular disease HIV disease Surgical History (Updated 06/06/24 @ 10:29 by SKYLAR Knapp) Hx of colonoscopy History of esophagogastroduodenoscopy (EGD) Hx of cardiac catheterization [facility] Fall Risk Assessment Score: Low risk Oral Motor Exam Facial Symmetry: Symmetrical Facial Movement: Controlled Mouth Occlusion: Normal Oral-Facial Teeth Characteristics: Intact/Normal Oral-Facial Teeth Miscellaneous Observation: Oral-Facial Lip Pucker Description: Normal Oral-Facial Smile (Lips) Description: Normal Oral-Facial Puff Cheeks Description: Normal Tongue Size: Normal Oral Expression Ability: Understands Concepts Is patient able to manage secretions?: Yes Is patient able to produce volitional cough?: Yes Food and Liquid Trials: Oral Impairment: Lip Closure: Did not test Oral Impairment: Tongue Control During Bolus Hold: 0=Cohesive bolus between tongue to palatal seal Oral Impairment: Bolus Preparation/Mastication: 0=Timely and efficient chewing and mashing Oral Impairment: Bolus Transport/Lingual Motion: 0=Brisk tongue motion Oral Impairment: Oral Residue: 1=Trace residue lining oral structures Oral Impairment:Initiation of Pharyngeal Swallow: 1=Bolus head in valleculae Pharyngeal Impairment: Soft Palate Elevation: 0=No bolus between soft palate (SP)/pharyngeal wall (PW) Pharyngeal Impairment: Laryngeal Elevation: 0=Complete superior movement of thyroid cartilage (see description) Pharyngeal Impairment: Anterior Hyoid Excursion: 0=Complete anterior movement Pharyngeal Impairment: Epiglottic Movement: 0=Complete inversion Pharyngeal Impairment: Laryngeal Vestibular Closure:: 1=Incomplete: narrow column air/contrast in laryngeal vestibule Pharyngeal Impairment: Pharyngeal Stripping Wave: 0=Present: complete Pharyngeal Impairment: Pharyngeal Contraction: Did not test Pharyngeal Impairment: Pharyngoesophageal Segment Openin=Complete distension and complete duration: no obstruction of flow Pharyngeal Impairment: Tongue Base (TB) Retraction: 1=Trace column of contrast/air between TB and posterior PW Pharyngeal Impairment: Pharyngeal Residue: 1=Trace residue within or on pharyngeal structures Pharyngeal Impairment: Esophageal Clearance Upright Position: Did not test Impressions and Recommendations Clinical Observations: Current (pre-evaluation) Intake/Diet: Pre-Study Functional Oral Intake Scale (FOIS): 6- Total oral intake with no special preparation, but must avoid specific foods or liquid items [facility] ID: [id number] [facility] Results: Lip closure for intraoral bolus containment could not be assessed due to logistical reasons not related to physiologic impairment. Tongue control during bolus hold maintained a cohesive bolus held between tongue to palate seal. Bolus preparation and mastication resulted in timely and efficient chewing and mashing. Bolus transport/lingual motion was with brisk tongue motion. Oral residue was a trace, lining oral structures. Initiation of the pharyngeal swallow occurred when the bolus head was in the valleculae. Soft palate elevation resulted in no bolus between the soft palate and the pharyngeal wall. Laryngeal elevation demonstrated complete superior movement of the thyroid cartilage with complete approximation of the arytenoids to the epiglottic petiole. Anterior hyoid excursion demonstrated complete anterior movement. Epiglottic movement resulted in complete inversion. Laryngeal vestibular closure was incomplete, with a narrow column of air/contrast noted within the laryngeal vestibule at the height of the swallow. Pharyngeal stripping wave was present and complete. Pharyngeal contraction could not be determined due to logistical reasons not related to physiologic impairment. Pharyngoesophageal segment opening was completely distended for complete duration with no obstruction of bolus flow. Tongue base retraction allowed a trace column of contrast or air between the retracted tongue base and the posterior pharyngeal wall. Pharyngeal residue was a trace within or on pharyngeal structures. Esophageal clearance in the upright position could not be assessed due to logistical reasons not related to physiologic impairment. SUMMARY: Pt was provided Thin Liquids, Puree Solids and Regular Solids with Barium Contrast. He remained in the seated position throughout the study. No aspiration was observed during the study. Very mild penetration that was spontaneously removed with Thin Liquids in the Consecutive Sip condition is deemed WFL. No retrograde flow was observed from this limited view. Pt reports that he felt symptom free immediately after the study. No diet restrictions recommended. As the Pt is already doing he will want to avoid foods that make his problem worse. Recommendations for Esophageal Dysmotility may help alleviate symptoms including; chew food well, alternate bites and sips, remain upright after meals at least 30 minutes, do not eat up to 2 hours before bed, elevate head to greater than 30 degrees, if possible. Intake Recommendations: Post-Study Functional Oral Intake Scale (FOIS): 6- Total oral intake with no special preparation, but must avoid specific foods or liquid items Liquid Intake Recommendation: Thin Liquid Intake Strategies: Unrestricted Dietary Recommendations: Regular Medication Administration: Crushed with Puree Please contact the pharmacy regarding appropriate crushable or liquid drug formulations that are available whenever modified delivery is recommended. Compensatory Strategies Recommended: Sitting Upright (90 deg) Small Bites and Sips Alternate Liquids/Solids Rate of Ingestion Change Supervision during eating and or drinking: None Needed Recommended Treatments: Compens. Strategy Educat. Recommendation for Speech Therapy: Further Testing Needed Text Comment: No diet restrictions recommended. As the Pt is already doing he will want to avoid foods that make his problem worse. Recommendations for Esophageal Dysmotility may help alleviate symptoms including; chew food well, alternate bites and sips, remain upright after meals at least 30 minutes, do not eat up to 2 hours before bed, elevate bed to greater than 30 degrees, if possible. Frequency/Duration: N/a Date Range for Service Requested: N/a Timeline to reassess: PRN Cut File Clerk Clinician/Clinical Fellow: No Supervisory Statement: N/A Speech Language Pathologist: Ramin Godoy M.A., CCC-[employer]
== END 2024-07-04 10:16 | disposition home or self-care (01) ==
LOC: HO.XRAY 10:15
PROVIDERS: PCP Physician Assistant; Visit Provider Internal Medicine
DX: R13.10 Dysphagia, unspecified (principal)
CPT/HCPCS: 74230; 92611

== ENCOUNTER → 2024-07-04 10:30 | Outpatient (BNV) | payer OTHER, SELFPAY | PROVIDERS: PCP Physician Assistant; Visit Provider Physician Assistant Surgical | DX: R13.10 Dysphagia, unspecified (principal) | CPT/HCPCS: 74230 ==

== ENCOUNTER 2024-08-01 09:06 | Outpatient (REF) | payer OTHER, SELFPAY ==
--- NOTE | ~2024-08-01 | CT_ITS ---
CLINICAL HISTORY: R13.10 - Dysphagia, unspecified CT chest with contrast Comparison: None Findings: The heart is normal size. Atherosclerotic disease of the coronary arteries noted. Possible LAD stent. Trace pericardial effusion. No mediastinal adenopathy. Small hiatal hernia noted. The esophagus is normal in course and in caliber. Lungs demonstrate no effusion, pneumothorax or suspicious lesion. No acute osseous abnormality. Low-density throughout the liver. Impression: Small hiatal hernia. Atherosclerotic disease of the coronary arteries. No definite acute process. Hepatic steatosis. This document has been electronically signed by: Bharat Elder MD on 08/02/2024 10:40:25
[2024-08-01] MEDS: iohexoL 350 MG/ML 100 ML INFUS..BTL IV (09:44)
[2024-08-01 11:50] LABS: Creatinine POC 0.8 mg/dL (0.5-1.4); GFR POC > 60
== END 2024-08-01 09:07 | disposition home or self-care (01) ==
LOC: HO.CT 09:06
PROVIDERS: PCP Physician Assistant; Visit Provider Internal Medicine
DX: R13.10 Dysphagia, unspecified (principal)
CPT/HCPCS: 71260; 82565; Q9967

== ENCOUNTER → 2024-08-01 09:09 | Outpatient (BNV) | payer OTHER, SELFPAY | PROVIDERS: PCP Physician Assistant; Visit Provider Radiology Vascular & Interventional Radiology | DX: I25.10 Atherosclerotic heart disease of native coronary artery without angina pectoris (principal); K44.9 Diaphragmatic hernia without obstruction or gangrene; K76.0 Fatty (change of) liver, not elsewhere classified | CPT/HCPCS: 71260 ==

== ENCOUNTER 2024-11-08 06:25 | Day surgery (SDC) | payer OTHER, SELFPAY ==
--- OUTSIDE RECORDS SUMMARY | 2024-09-17 06:47 | XMS_ITS | Clinical Summary ---
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 Role Phone Angel Montelongo PA-C Primary Care Provider Source Comments PLEASE NOTE, if this patient is a minor, it may be UNLAWFUL to discuss sensitive information that is contained in these records (such as FAMILY PLANNING, MENTAL HEALTH or SUBSTANCE ABUSE) with the minor patient's parent or other person without the patient's specific authorization.[facility] Allergies No known active allergies Medications nitroglycerin (NITROSTAT) 0.[address] 1 Tablet under the tongue every 5 (five) minutes as needed for chest pain 90 Tablet 1 023 Active alfuzosin ER (UROXATRAL) 10 mg 24 hr tablet Take 1 Tablet by mouth once daily with breakfast 90 Tablet 023 Active MISCELLANEOUS MEDICAL SUPPLY MISCIndications :At high risk for falls,Unsteady gait by miscellaneous route daily Diagnosis: at high risk of falling, unsteady gait, AUBREY: 99, Supply: two-wheeled walker with seat. 1 Each 023 Active LUMIGAN 0.01 % ophthalmic solution INSTILL 1 DROP IN EACH EYE AT BEDTIME (BULK) 2.5 mL 024 Active brimonidine-radha oloL (COMBIGAN) 0.2-0.5 % ophthalmic solution INSTILL ONE DROP TO THE AFFECTED EYE(S) TWICE A DAY (BULK) 5 mL 024 Active BIKTARVY 50-200-25 mg tabIndications: Asymptomatic HIV infection, with no history of HIV-related illness ([facility]) TAKE ONE TABLET BY MOUTH EVERY DAY (ORIGINAL BOTTLE) (BULK) 30 Tablet 11 024 Active predniSONE (DELTASONE) 20 mg tabletIndicatio ns:Urticaria TAKE 3 TABLETS BY MOUTH ONCE DAILY FOR 3 DAYS, THEN 2 TABLETS ONCE DAILY FOR 3 DAYS, THEN 1 TABLET ONCE DAILY FOR 3 DAYS (VIAL) 18 Tablet 024 Active pantoprazole (PROTONIX) 40 mg EC tablet Take 40 mg by mouth once daily 024 Active SENNA 8.6 mg tabletIndicatio ns:Slow transit constipation TAKE TWO TABLETS BY MOUTH EVERY DAY^2R1 60 Tablet 11 024 Active mometasone (ELOCON) 0.1 % ointmentIndicat ions:Urticaria APPLY TO AFFECTED AREA(S) TOPICALLY ONCE DAILY FOR 14 ADYS (BULK) 45 g 1 024 Active ELIQUIS 5 mg tab TAKE ONE TABLET BY MOUTH TWICE A DAY ^1R1,1R4 60 Tablet 5 025 Active FISH OIL 300-1,000 mg cap TAKE ONE CAPSULE BY MOUTH THREE TIMES A DAY ^1R1,1R2,1R4 90 Capsule 025 Active aspirin [address] tablet TAKE ONE TABLET BY MOUTH EVERY DAY ^1R2 30 Tablet 025 Active ezetimibe (ZETIA) 10 mg tablet TAKE ONE TABLET BY MOUTH EVERY DAY ^1R4 30 Tablet 025 Active hydrOXYzine HCL (ATARAX) 25 mg tabletIndicatio ns:Urticaria TAKE ONE TABLET BY MOUTH THREE TIMES A DAY NEEDED FOR ITCHING (VIAL) 30 Tablet 025 Active cetirizine (ZYRTEC) 10 mg tablet TAKE ONE TABLET BY MOUTH EVERY DAY ^1R4 30 Tablet 025 Active albuterol HFA 90 mcg/actuation inhalerIndicati ons:Cough, unspecified type INHALE TWO PUFFS BY MOUTH EVERY 4 HOURS NEEDED FOR WHEEZING (BULK) 8.5 g 3 025 Active acetaminophen (TYLENOL) 325 mg tabletIndicatio ns:Acute right-sided low back pain without sciatica TAKE TWO TABLETS BY MOUTH EVERY 6 HOURS NEEDED FOR PAIN (VIAL) 60 Tablet 1 025 Active metoprolol succinate XL (TOPROL-XL) 25 mg 24 hr tablet TAKE ONE TABLET BY MOUTH EVERY DAY ^1R4 30 Tablet 025 Active rosuvastatin (CRESTOR) 40 mg tablet TAKE ONE TABLET BY MOUTH EVERY DAY ^1R4 30 Tablet 025 Active montelukast (SINGULAIR) 10 mg tablet TAKE ONE TABLET BY MOUTH EVERY EVENING ^1R4 30 Tablet 025 Active apixaban (ELIQUIS) 5 mg tab Take 1 Tablet by mouth 2 (two) times daily 180 Tablet 1 024 2024 Discontinued albuterol HFA 90 mcg/actuation inhalerIndicati ons:Cough, unspecified type INHALE TWO PUFFS BY MOUTH EVERY 4 HOURS NEEDED FOR WHEEZING (BULK) 8.5 g 3 024 2024 Discontinued FISH OIL 300-1,000 mg cap TAKE ONE CAPSULE BY MOUTH THREE TIMES A DAY ^1R1,1R2,1R4 90 Capsule 025 2024 Discontinued acetaminophen (TYLENOL) 325 mg tabletIndicatio ns:Acute right-sided low back pain without sciatica TAKE TWO TABLETS BY MOUTH EVERY 6 HOURS NEEDED FOR PAIN (VIAL) 60 Tablet 1 025 2024 Discontinued hydrOXYzine HCL (ATARAX) 25 mg tabletIndicatio ns:Urticaria TAKE 1 TABLET BY MOUTH 3 TIMES A DAY NEEDED FOR ITCHING (VIAL) 30 Tablet 025 2024 Discontinued cetirizine (ZYRTEC) 10 mg tablet TAKE ONE TABLET BY MOUTH EVERY DAY ^1R4 30 Tablet 025 2024 Discontinued rosuvastatin (CRESTOR) 40 mg tablet TAKE ONE TABLET BY MOUTH EVERY DAY ^1R4 30 Tablet 025 2024 Discontinued ezetimibe (ZETIA) 10 mg tablet TAKE ONE TABLET BY MOUTH EVERY DAY ^1R4 30 Tablet 025 2024 Discontinued aspirin [address] tablet TAKE ONE TABLET BY MOUTH EVERY DAY ^1R2 30 Tablet 025 2024 Discontinued metoprolol succinate XL (TOPROL-XL) 25 mg 24 hr tablet TAKE ONE TABLET BY MOUTH EVERY DAY ^1R4 30 Tablet 025 2024 Discontinued montelukast (SINGULAIR) 10 mg tablet TAKE ONE TABLET BY MOUTH EVERY EVENING AT BEDTIME ^1R4 30 Tablet 025 2024 Discontinued Active Problems Problem Noted Date Diagnosed Date Hepatic steatosis 08/09/2024 Overview (08/09/2024): 08/01/24 CT chest Hiatal hernia 08/09/2024 Overview (08/09/2024): 07/2024 CT chest Atherosclerosis of coronary artery 08/09/2024 Overview (08/09/2024): 07/[address] Internal hemorrhoid 05/18/2023 Overview (05/18/2023): 10/08/22 Sigmoidoscopy History of AK (myocardial infarction) 04/09/2023 Overview (04/09/2023): Has 2 stents from [place] AMD (age-related macular degeneration), bilatera l 04/09/2023 Overview (04/09/2023): Gets injections Primary open angle glaucoma (POAG) of both eyes, mild stage 04/09/2023 Benign prostatic hyperplasia without lower urinary tract symptoms 04/09/2023 Mild intermittent asthma without complication Other constipation 04/09/2023 Asymptomatic HIV infection, with no history of HIV-related illness ([facility]) 06/17/1998 Overview (04/28/2023): HLA [id number] Negative 04/22/23 Encounters Date Type Department Care Team Description 07/31/2024 3:20 PM EST Office Visit [facility] [address] [phone] Angel Montelongo PA-C Requires assistance with activities of daily living (ADL) (Primary Dx); Immunization due 07/31/2024 Travel from Last 3 Months Immunizations Name Administration Dates Next Due Flu, High Dose, 65y+, Fluzone High Dose 04/09/20 23 Hep B,adult,adjuvanted (HEPLISAV) 07/31/2024 INFLUENZA, SEASONAL, INJECTABLE 04/03/2013 Influenza (FLUZONE), high-dose, trivalent, PF Meningococcal (A,C,Y, W) conjugate vaccine 11/03 Moderna COVID-19 (Spikevax), Mrna, Lnp-s, Pf, 50 Mcg/0.5 Ml, 12yr+ 07/07/2023 PNEUMOCOCCAL CONJUGATE PCV 20 (Prevnar) 09/28/19 24 Pfizer COVID-19 (Comirnaty), Mrna, Lnp-s, Pf, Deondre-sucrose, 30 Mcg/0.3 Ml, 12yr+ 04/17/2024 TDAP 09/28/2023 ZOSTER VACCINE, RECOMBINANT (SHINGRIX) Social History Tobacco Use Types Packs/Day Years Used Date Smoking Tobacco: Never Passive Smoke Exposure: Never Smokeless Tobacco: Never Tobacco Cessation:Counseling Given: Not Answered Alcohol Use Standard Drinks/Week Comments Not Currently 6 (1 standard drink = 0.6 oz pure alcohol) Drinks a six pack of beer on the weekends. Social Connections Answer Date Recorded Connectedness 1 04/17/2024 Financial Resource Strain Answer Date R ecorded Financial Resource Strain 1 2023 Stress Answer Date Recorded Stress 1 04/17/2024 Physical Activity Answer Date Recorded Physical Activity 0 03/04/2022 Food Insecurity Answer Date Recorded Food 1 04/17/2024 Transportation Needs Answer Date Record ed Transportation 1 04/17/2024 Housing Stability Answer Date Recorded Housing 1 04/17/2024 Safety and Environment Answer Date Nishant rded Safety 0 03/04/2022 Utilities Answer Date Recorded Utilities 1 04/17/2024 Employment Answer Date Recorded Stress 0 03/30/2024 Sex and Gender Information Value Date Recorded Sex Assigned at Male 04/09/2023 8:19 AM PDT Legal Sex Male 11:36 AM PDT Gender Identity Male 04/09/2023 8:19 AM PDT Sexual Orientation Straight 04/09/2023 8: 19 AM PDT Last Filed Vital Signs Vital Sign Reading Time Taken Comments Blood Pressure 128/80 07/31/2024 3:30 PM EST Pulse 67 07/31/2024 3:30 PM EST Temperature 36.6 ??C (97.8 ??F) 07/31/2024 3:30 PM ES T Respiratory Rate 18 07/31/2024 3:30 PM EST Oxygen Saturation 99% 07/31/2024 3:30 PM EST Inhaled Oxygen Concentration - - Weight 93.9 kg (207 lb) 07/31/2024 3:30 PM EST Height 165.1 cm (5' 5 ) 07/31/2024 3:30 PM EST Body Mass Index 34.45 07/31/2024 3:30 PM EST Plan of Treatment Upcoming Encounters Date Type Department Care Team (Late st Contact Info) Description 10/02/2024 10:20 AM EDT Office Visit [facility] [address] [place] [phone] Angel Montelongo PA-C [address] [place], [place] [phone] Health Maintenance Due Date Last Done Comments Dental Perio Charting 1940 Advanced Care Planning 1940 Imm-Hepatitis B (2 of 2 - Cp G risk 2-dose series) 08/28/2024 07/31/2024 Imm-Zoster, Recombinant (2 o f 2) 09/25/2024 07/31/2024 Falls Prevention 09/27/2024 09/28/2023 Lipid Screening 09/27/2024 09/28/2023, 04/22/2023 Medicare Annual Wellness Visit 09/27/2024 09/28/2023 Tobacco Screening 09/27/2024 09/28/2023 Imm-Meningococcal (2 - Risk 2-dose series) 10/29/2024 11/04/2023 Postponed from 12/29 (Patient postponement) Dental Examination 02/17/2025 02/16/2024 Dental Prophy 02/17/2025 02/16/2024 Imm-Hepatitis A (1 of 2 - Risk 2-dose series) 04/17/2025 Postponed from 11/26 (Patient postponement) Hypertension Screening (#1) 07/31/2025 Diabetes Screening 04/20/2027 04/20/2024, 09/28/2023, 04/22/2023 Dental FMX/Pano 02/17/2029 02/16/2024 Imm-DTaP/Tdap/Td (2 - Td or Tdap) 09/27/2033 09/28/2023 Hepatitis B Screening Completed 09/28/2023 Imm-Pneumococcal 65+ Completed 09/28/2023 [id number] Completed 04/17/2024, 07/07/2023 Imm-Influenza Completed 04/17/2024, 04/09/2023, 04/03/2013 Alcohol and Drug Screen Completed 07/31/19 25, 09/28/2023, 06/28/2023 Depression Annual Screen Completed 025, 09/28/2023 Procedures Procedure Name Priority Date/Time Associated Diagnosis Comments LAB SCANNED DOCUMENT 08/01/2024 3:00 AM EST IMAGING SCANNED DOCUMENT 08/01/2024 3:00 AM EST IMAGING SCANNED DOCUMENT 08/01/2024 3:00 AM EST IMAGING SCANNED DOCUMENT 07/04/2024 3:00 AM EST COMPREHENSIVE METABOLIC PANEL Routine 04/20/2024 10:14 AM EDT Asymptomatic HIV infection, with no history of HIV-related illness ([facility]) PANORAMIC RADIOGRAPHIC IMAGE Routine 02/16/2024 10:20 AM EDT Encounter for dental examination Defective dental rastafari Caries of enamel (incipient) Caries PROPHYLAXIS - ADULT Routine 02/16/2024 1 0:20 AM EDT Encounter for dental examination Caries of enamel (incipient) Caries COMP ORAL EVALUATION - NEW/ESTABLISHED PATIENT Routine 02/16/2024 10:20 AM EDT Encounter for dental examination Caries of enamel (incipient) Caries HEPATITIS B SURF ANTIBODY HBSAB Routine 09/28/2023 10:49 AM EDT Encounter for annual physical exam LIPID PANEL Routine 09/28/2023 10:49 AM EDT Encounter for annual physical exam from Last 3 Months or Most Recently Relevant to Health Maintenance Results * LAB SCANNED DOCUMENT (08/01/2024 3:00 AM EST) 08/01/2024 3:00 AM EST Angel Montelongo PA-C SCAN LAB Final Result * IMAGING SCANNED DOCUMENT (08/01/2024 3:00 AM EST) Only the most recent of3 resultswithin the time period is included. 08/01/2024 3:00 AM EST Angel Penalo PA-C SCAN IMAGING Final Result * (ABNORMAL) COMPREHENSIVE METABOLIC PANEL (04/20/2024 10:14 AM EDT) GLUCOSE 125 65 - 139 mg/dL [facility] Comment: ?Non-fasting reference interval UREA NITROGEN (BUN) 12 7 - 25 mg/dL [facility] CREATININE (blood) 0.90 0.70 - 1.22 mg/dL [facility] EGFR 86 > OR = 60 mL/min/1. 73m2 [facility] BUN/CREATININE RATIO SEE NOTE: [facility] Comment: ?? Not Reported: BUN and Creatinine are within ?? reference range. ? SODIUM 139 135 - 146 mmol/L [facility] POTASSIUM 4.4 3.5 - 5.3 mmol/L [facility] CHLORIDE 105 98 - 110 mmol/L [facility] CARBON DIOXIDE 26 20 - 32 mmol/L [facility] CALCIUM 8.6 8.6 - 10.3 mg/dL [facility] PROTEIN, TOTAL 6.8 6.1 - 8.1 g/dL [facility] ALBUMIN 4.0 3.6 - 5.1 g/dL [facility] GLOBULIN 2.8 1.9 - 3.7 g/dL (calc) [facility] ALBUMIN/GLOBULI N RATIO 1.4 1.0 - 2.5 (calc) [facility] BILIRUBIN, TOTAL 0.7 0.2 - 1.2 mg/dL [facility] ALKALINE PHOSPHATASE 104 35 - 144 U/L [facility] AST 48(H) 10 - 35 U/L [facility] ALT 32 9 - 46 U/L [facility] Blood Blood / Unknown 04/20/2024 1 0:14 AM EDT 04/20/2024 10:15 AM EDT Narr[facility] - 04/25/2024 1:02 PM EDT FASTING:NO Juanita Correa PA-C LAB - BLOOD DRAW Edited Resu lt - Final Performing Organization Address City/[facility]/ZIP Co de Phone [place] [address], [employer] [address] [phone] * HEPATITIS B SURF ANTIBODY HBSAB (09/28/2023 10:49 AM EDT) Pathologist [facility] [place] HEPATITIS B SURFACE ANTIBODY QL NON-REACT KANNAN NON-REACT KANNAN [facility] Blood Blood / Unknown 09/28/2023 1 0:49 AM EDT 09/28/2023 10:50 AM EDT [facility] - 09/29/2023 6:17 AM EDT FASTING:NO Angel Montelongo PA-C LAB - BLOOD DRAW Final Resul t Performing Organization Address [facility] Co de Phone Number [employer] [address] [address], [employer] [address] [phone] * (ABNORMAL) LIPID PANEL (09/28/2023 10:49 AM EDT) Pathologist [facility] [place] CHOLESTEROL, TOTAL 158 <200 mg/dL [facility] HDL CHOLESTEROL 41 > OR = 40 mg/dL [facility] TRIGLYCERIDES 212(H) <150 mg/dL [facility] Comment: If a non-fasting specimen was collected, consider repeat triglyceride testing on a fasting specimen if clinically indicated. Shahbaz et al. J. of Clin. Lipidol. 2015;9:129-169. LDL-CHOLESTEROL 86 99 mg/dL (calc) [facility] Comment: Reference range: <100 Desirable range <100 mg/dL for primary prevention; ?? <70 mg/dL for patients with CHD or diabetic patients with > or = 2 CHD risk factors. LDL-C is now calculated using the Tyler-Payne calculation, which is a validated novel method providing better accuracy than the Friedewald equation in the estimation of LDL-C. Tyler SS et al. EDILBERTO. 2013;310(19): 7602-8968 (http://education.TheLocker/faq/EOC232) CHOL/HDLC RATIO 3.9 <5.0 (calc) [facility] NON-HDL CHOLESTEROL 117 <130 mg/dL (calc) [facility] Comment: For patients with diabetes plus 1 major ASCVD risk factor, treating to a non-HDL-C goal of <100 mg/dL (LDL-C of <70 mg/dL) is considered a therapeutic option. Blood Blood / Unknown 09/28/2023 1 0:49 AM EDT 09/28/2023 10:50 AM EDT Narrative [facility] - 09/29/2023 6:17 AM EDT FASTING:NO Angel Montelongo PA-C LAB - BLOOD DRAW Final Resul t [facility] [address] [address], [facility] [address] [place] [phone] from Last 3 Months or Most Recently Relevant to Health Maintenance Insurance [facility] Member Subscriber Plan / Payer (Ef fective 2023-Present) Name:Mor Martinez Relation to Subscriber:Self Name:Mor Martinez Payer ID:[id number] Group ID:Not on file Type:Indemnity Address: [address] [place] [address] [facility] 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
[2024-11-06 08:37] VITALS: BMI 32.3
--- NOTE | 2024-11-06 12:13 | HO.ANESPROP2 ---
Documented by User: Codie Carson NP 11/06/24 12:21 HPI - Anesthesia Eval Consult details Narrative: 83yo M for Upper Endoscopy with Dilitation Cardiac eval 10/2023 for preop endo - optimized. Pt did not attend 04/2024 cardiac office visit. Per RN telephone assessment, no current CP/SOB. Hx CAD s/p STEMI 2012 Eliquis for aflutter PMFSH Active Problems Active Problems: All Active Problems Gastritis (Acute) Esophageal dysmotility (Acute) Preoperative cardiovascular examination (Acute) Atrial flutter by electrocardiogram (Acute) Coronary artery disease (Acute) Dysphagia (Acute) Past Medical History Medical History Sleep apnea Myocardial infarction CVA (cerebral vascular accident) Aortic stenosis Chronic anticoagulation Peripheral vascular disease HIV disease Family History Family History Mother No problems noted. Father No problems noted. Family history of problems with anesthesia: No Surgical History Surgical History History of back surgery History of coronary artery stent placement Hx of colonoscopy History of esophagogastroduodenoscopy (EGD) Hx of cardiac catheterization History of Problems with Anesthesia: No Social History Social History Alcohol intake: current Alcohol intake frequency: holidays/special occasions only Patient Tobacco Use Status: Never used Tobacco Meds Allergies Allergy/AdvReac Type Severity Reaction Status Date / Time No Known Allergies Allergy Verified 06/06/24 10:24 Home Medications ?Medication ?Instructions ?Recorded ?Confirmed ?Last Taken ?Type albuterol sulfate 90 mcg/actuation inhalation 09/02/23 10/19/23 Unknown History aerosol inhaler apixaban 5 mg tablet (Eliquis) 5 mg PO BID 09/02/23 10/19/23 11/04/24 History aspirin 81 mg tablet,delayed 81 mg PO DAILY 09/02/23 11/08/24 11/07/24 History release benzonatate 100 mg capsule 100 mg PO TID PRN cough 09/02/23 10/19/23 Unknown History bictegravir 50 mg-emtricitabine 1 tab PO DAILY 09/02/23 10/19/23 Unknown History 200 mg-tenofovir alafenam 25 mg tablet (Windy) bimatoprost 0.01 % eye drops drp ophthalmic (eye) 09/02/23 10/19/23 Unknown History (Jannet) brimonidine 0.2 %-timolol 0.5 % drp ophthalmic (eye) 09/02/23 10/19/23 Unknown History eye drops ezetimibe 10 mg tablet 10 mg PO DAILY 09/02/23 10/19/23 Unknown History hydroxyzine HCl 25 mg tablet 25 mg PO TID 09/02/23 10/19/23 Unknown History metoprolol succinate 25 mg 25 mg PO DAILY 09/02/23 10/19/23 Unknown History tablet,extended release 24 hr montelukast 10 mg tablet 10 mg PO DAILY 09/02/23 10/19/23 Unknown History nitroglycerin 0.4 mg sublingual mg sublingual 09/02/23 10/19/23 Unknown History tablet omega 6-eef-eed-fish oil 300 cap PO 09/02/23 10/19/23 Unknown History mg-1,000 mg capsule (Fish Oil) prednisone 20 mg tablet 20 mg PO BID 09/02/23 10/19/23 Unknown History rosuvastatin 40 mg tablet 40 mg PO DAILY 09/02/23 10/19/23 Unknown History sennosides 8.6 mg tablet (senna) 17.2 mg PO DAILY 09/02/23 10/19/23 Unknown History cetirizine 10 mg tablet 10 mg PO DAILY 06/06/24 Unknown History omeprazole 40 mg capsule,delayed 40 mg PO DAILY 06/06/24 Unknown History release vit C 250 mg-vit E 90 mg-zinc 40 1 cap PO BID 06/06/24 Unknown History mg-copper 1 zz-tyskvz-oyzpwn capsule (PreserVision AREDS-2) Exam Height,Weight and Vital Signs: Height 5 ft 6 in Weight 90.718 kg Narrative Narrative: Cardiac catheterization reviewed from 2012. Proximal LAD with 100% stenosis, status post PCI. Mid LAD had 40% stenosis. Mid circumflex with 70% stenosis and RCA with 50% stenosis. Per [place] records, another cardiac catheterization in 2020-multivessel CAD with moderate plaque in the mid to distal LAD; diffuse stenosis in OM2/OM3; borderline stenosis proximal RCA. FFR negative for OM2, OM3, mid RCA. In the distal LAD, FFR was 0.86. ECHO 09/2023 Conclusions: - Normal left ventricular cavity size. There is moderately increased left ventricular wall thickness. The left ventricular systolic function is borderline reduced. The visually estimated ejection fraction is between 45-50%. - The apical anterior segment is hypokinetic. - The apex, apical septum, and mid anteroseptal segments are akinetic. - Mildly increased right ventricular cavity size. There is borderline right ventricular systolic function. - There is mild dilatation of the ascending aorta measuring 3.70 cm. EKG 09/2023 Details: EKG with atrial flutter at 77/Min; right bundle-branch block pattern; old anterolateral/inferior infarct. Assessment and Plan Assessment Anesthesia Assessment: Chart Reviewed Final Anesthetic Review Family History of Problems with Anesthesia: No History of Problems with Anesthesia: No Documented by User: Antonette Mcmillan MD 11/08/24 08:28 REPLACED BY [facility] Past Medical History Medical History Sleep apnea Myocardial infarction CVA (cerebral vascular accident) Aortic stenosis Chronic anticoagulation Peripheral vascular disease HIV disease Family History Family History Mother No problems noted. Father No problems noted. Family history of problems with anesthesia: No Surgical History Surgical History History of back surgery History of coronary artery stent placement Hx of colonoscopy History of esophagogastroduodenoscopy (EGD) Hx of cardiac catheterization History of Problems with Anesthesia: No Social History Social History Alcohol intake: current Alcohol intake frequency: holidays/special occasions only Patient Tobacco Use Status: Never used Tobacco Meds Allergies Allergy/AdvReac Type Severity Reaction Status Date / Time No Known Allergies Allergy Verified 06/06/24 10:24 Home Medications ?Medication ?Instructions ?Recorded ?Confirmed ?Last Taken ?Type albuterol sulfate 90 mcg/actuation inhalation 09/02/23 10/19/23 Unknown History aerosol inhaler apixaban 5 mg tablet (Eliquis) 5 mg PO BID 09/02/23 10/19/23 11/04/24 History aspirin 81 mg tablet,delayed 81 mg PO DAILY 09/02/23 11/08/24 11/07/24 History release benzonatate 100 mg capsule 100 mg PO TID PRN cough 09/02/23 10/19/23 Unknown History bictegravir 50 mg-emtricitabine 1 tab PO DAILY 09/02/23 10/19/23 Unknown History 200 mg-tenofovir alafenam 25 mg tablet (Juanarvdedrick) bimatoprost 0.01 % eye drops drp ophthalmic (eye) 09/02/23 10/19/23 Unknown History (Jannet) brimonidine 0.2 %-timolol 0.5 % drp ophthalmic (eye) 09/02/23 10/19/23 Unknown History eye drops ezetimibe 10 mg tablet 10 mg PO DAILY 09/02/23 10/19/23 Unknown History hydroxyzine HCl 25 mg tablet 25 mg PO TID 09/02/23 10/19/23 Unknown History metoprolol succinate 25 mg 25 mg PO DAILY 09/02/23 10/19/23 Unknown History tablet,extended release 24 hr montelukast 10 mg tablet 10 mg PO DAILY 09/02/23 10/19/23 Unknown History nitroglycerin 0.4 mg sublingual mg sublingual 09/02/23 10/19/23 Unknown History tablet omega 6-zsm-ehd-fish oil 300 cap PO 09/02/23 10/19/23 Unknown History mg-1,000 mg capsule (Fish Oil) prednisone 20 mg tablet 20 mg PO BID 09/02/23 10/19/23 Unknown History rosuvastatin 40 mg tablet 40 mg PO DAILY 09/02/23 10/19/23 Unknown History sennosides 8.6 mg tablet (senna) 17.2 mg PO DAILY 09/02/23 10/19/23 Unknown History cetirizine 10 mg tablet 10 mg PO DAILY 06/06/24 Unknown History omeprazole 40 mg capsule,delayed 40 mg PO DAILY 06/06/24 Unknown History release vit C 250 mg-vit E 90 mg-zinc 40 1 cap PO BID 06/06/24 Unknown History mg-copper 1 xn-gmnnom-samgip capsule (PreserVision AREDS-2) Exam Height,Weight and Vital Signs: Height 5 ft 6 in Weight 90.718 kg Vital Signs Temp Pulse Resp BP Pulse Ox O2 Del Method 96.7 F L 56 16 173/79 H 98 Room Air 11/08/24 07:05 11/08/24 07:05 11/08/24 07:05 11/08/24 07:05 11/08/24 07:05 11/08/24 07:05 Airway Mallampati Class: II TM Dist: >3cm Neck ROM: Full Denture: Lower Partial: Upper Loose/Missing/Broken Teeth: Yes Heart: Regular Lungs: CTAB Assessment and Plan Assessment Anesthesia Assessment: Anesthesia Plan Discussed and Chart Reviewed Final Anesthetic Review Family History of Problems with Anesthesia: No History of Problems with Anesthesia: No NPO: Yes ASA Class: III Final Preanesthetic Review: No Changes in Pt Med Stat, Meds/Allgs Chart Reviewed, Consent Obtained/Reviewed and Anes Risks/Benef Reviewed Patient Risk: Intermediate Procedure Risk: Low Assessment/Block/Sedation in SS: Assess/Block/Sedation-SS Anesthetic Plan Anesthetic Plan: TIVA Disposition: Standard PACU
--- NOTE | 2024-11-08 06:27 | MHC.SHP ---
Pre-Procedural Eval Section A - 24 Hr Update-Section A only Date of Service: 11/08/24 Section B - Complete if H&P > 30 days Chief Complaint: Dysphagia, unspecified Details of Present Illness: Medical History Chronic anticoagulation Peripheral vascular disease HIV disease Surgical History (Updated 06/06/24 @ 10:29 by SKYLAR Knapp) Hx of colonoscopy History of esophagogastroduodenoscopy (EGD) Hx of cardiac catheterization Present Medications: see Short Stay Collaborative assessment Allergies: Allergies Allergy/AdvReac Type Severity Reaction Status Date / Time No Known Allergies Allergy Verified 06/06/24 10:24 Review of Systems Review of Systems Comment: 10 point ROS negative Exam Exam Comment: Gen appear: No acute distress HEENT: no icterus Chest: No overt resp distress Abd: soft, nontender, nondistended Psych: Stable affect, answering questions appropriately Neuro: A/Ox3 noted to move all extremities spontaneously Ext: no peripheral edema Plan Diagnosis/Plan: Unchanged I have reviewed the history and physical and performed a pertinent physical examination on my patient. No changes have occurred unless specified. Time Spent With Patient Time: Total time managing care of this patient today ____ minutes.
[2024-11-08 06:56] VITALS: BMI 34.2
[2024-11-08 07:05] VITALS: BP 173/79; PULSE 56; RESP 16; TEMP 35.9; O2SAT 98
[2024-11-08] MEDS: Lactated Ringers 1,000 ML 100 ML IVCONT (07:12)
[2024-11-08 07:30] VITALS: TEMP 36.1
[2024-11-08 07:37] VITALS: BP 111/75; PULSE 72; RESP 16; TEMP 36.6; O2SAT 100
--- NOTE | 2024-11-08 07:57 | P.OP_ITS ---
Operative Note Operative Note Date of Service: 11/08/24 Narrative: Procedure: Esophagogastroduodenoscopy Endoscopist: Samara Briscoe MD Indication: Dysphagia Anesthesia Provider: Dr Antonette Mcmillan Anesthesia Type: MAC ?? EGD Procedure:?? The procedure, indications, preparation and potential complications were reviewed with the patient, who indicated understanding and gave written informed consent to proceed with the help of a bilingual interpreter. A physical exam was performed. The endoscope was introduced through the mouth, and advanced to the second part of duodenum. The mucosa was carefully examined on slow withdrawal of the endoscope. The patient tolerated the procedure well. There were no immediate complications.? ? EGD Findings:? * Esophagus:? Normal mucosa noted in the entire esophagus. The Z line was at 41 and displaced upwards by a hiatal hernia with the diaphragmatic pinch at 44 cm. There was also a partially obstructing Schatzki's ring noted at the GE junction. Middle and lower esophagus forceps biopsies were obtained to rule out eosinophilic esophagitis. * Stomach:? 2 small inflammatory appearing polyps measuring 4-6 mm noted in the herniated portion of the fundus. Cold forceps biopsies were taken for histology. Normal mucosa was noted in the remaining stomach. Retroflexion was performed in the cardia. * Duodenum:? Normal mucosa was noted in the whole of the examined duodenum. Additional intervention: Soft tipped Savary wire was introduced through the biopsy channel of the gastroscope and advanced to the antrum. ?The gastroscope was then backed out. ?Savary Leia bougie was advanced over the guidewire and the esophagus was dilated to 19 mm without any resistance felt. ?On relook, no heme or tear was noted. A through the scope balloon was then inserted through the biopsy channel and advanced to the GE junction. This was incrementally inflated to 20 mm. On relook, the Schatzki's ring appeared successfully interrupted. ? ? EGD Impressions:? * Normal esophagus (biopsy) * Schatzki's ring (dilation) * Hiatal hernia * Gastric polyps (biopsy) * Normal duodenum ?? Recommendations:?? * Follow biopsy results. Our office will call or send a letter with results within 7-10 days. * Resume anticoagulation TOMORROW. * Avoid NSAIDs. * If dilation today alleviates symptoms, this can be repeated as needed for recurrence of symptoms. Above has been reviewed with the patient.
[2024-11-08 08:22] VITALS: BP 115/55; PULSE 59; RESP 16; TEMP 36.4; O2SAT 96
[2024-11-08 08:37] VITALS: BP 124/58; PULSE 54; RESP 16; TEMP 36.1; O2SAT 96
== END 2024-11-08 09:07 | disposition home or self-care (01) ==
PROVIDERS: PCP Physician Assistant; Visit Provider Internal Medicine
PROC: (CPT 43249; principal; 2024-11-08 07:30)
DX: R13.12 Dysphagia, oropharyngeal phase (principal); K22.4 Dyskinesia of esophagus; R11.10 Vomiting, unspecified; B20 Human immunodeficiency virus [HIV] disease; I25.10 Atherosclerotic heart disease of native coronary artery without angina pectoris; Z95.5 Presence of coronary angioplasty implant and graft; I25.2 Old myocardial infarction; I35.0 Nonrheumatic aortic (valve) stenosis; I73.9 Peripheral vascular disease, unspecified; I48.92 Unspecified atrial flutter; G47.30 Sleep apnea, unspecified; Z86.73 Personal history of transient ischemic attack (TIA), and cerebral infarction without residual deficits; Z79.01 Long term (current) use of anticoagulants; Z79.82 Long term (current) use of aspirin; Z79.899 Other long term (current) drug therapy
CPT/HCPCS: 43249; 43239; 88305; 88313; 88342; C1726; C1769; J2003; J2704

== ENCOUNTER → 2024-11-08 06:25 | Outpatient (BNV) | payer OTHER, SELFPAY | PROVIDERS: PCP Physician Assistant; Visit Provider Internal Medicine | DX: K22.2 Esophageal obstruction (principal); K31.7 Polyp of stomach and duodenum | CPT/HCPCS: 43239; 43248 ==

== ENCOUNTER 2024-12-12 08:51 | Outpatient (AMB) | payer OTHER, SELFPAY ==
[2024-12-12 08:55] VITALS: BP 160/70; PULSE 58; BMI 33.3
--- NOTE | 2024-12-12 08:55 | A.OFFVIS_ITS ---
Vital Signs 12/12/24 08:55 Height 5 ft 4 in Weight 194 lb 0.108 oz BMI 33.3 BP 160/70 H Blood Pressure Location Lt brachial Position Sitting Pulse 58 Intake Visit Reasons: s/p EGD with dilation; Dr. Briscoe Intake Note: Mor presents in the office as a follow up EGD w/ Dil. CC: Here for results - no concerns. States swallowing is a little better. Teacher Home Therapy Required: Yes Teacher Home Therapy Name: Daughter Allergies No Known Allergies Allergy (Verified 12/12/24 08:57) HPI Comments Details: This is an 82 y.o M with PMH of CAD, PAD, HIV, ?AFib on eliquis, who is here for recurrent dysphagia. Accompanied by his daughter Barbara. Reports that has had intermittent dysphagia for almost 10 years now and used to get endoscopic dilations back at [facility] - last one was > 5 years ago. Trouble is mostly with solids. Able to drink liquids fine. Gags with some certain solids but no vomiting. Has been avoiding certain foods brennen meat to avoid food obstruction. Had some weight loss around 5-6 lbs in 3 months. Patient previously used to get care at [facility], then moved to [place] for a couple of years, and has only returned 6 months ago. Some medical history is unclear, including indication for Eliquis. Daughter mentions patient has a history of stroke and was started on Eliquis thereafter ? AFib. He also has coronary artery disease with history of coronary stent placement, but has not established care with a podiatric assistant locally yet. 11/18/23: Here with his daughter. Cardiac work up completed - intermediate risk for GI procedures. Pt's daughter report pt has significant regurgitation brennen at night time. Constantly clearing throat. Barium swallow reviewed. Has dysmotility based on barium swallow. 03/07/24: EGD (Dr Valdez) 1. Gastritis 2. Hiatal hernia 3. Schatzki ring (balloon dil 20 mm) Path: A. Stomach, biopsy: Gastric antral mucosa with mild-moderate reactive changes and minimal chronic inactive gastritis; negative for intestinal metaplasia and dysplasia. B. Esophagus, random, biopsy: Squamous mucosa with no specific change; no columnar mucosa present 06/06/24: Here with daughter. Reports little improvement since dilation. Cont to have issues with coughing and choking after eating. Daughter also notes frequent coughing and spitting up at night time when he is trying to sleep. 11/08/24: * Normal esophagus (biopsy) * Schatzki's ring (dilation) * Hiatal hernia * Gastric polyps (biopsy) * Normal duodenum Path: A. Stomach, polypectomies: Fundic gland and hyperplastic mucosal polyps with background moderate chronic inactive inflammation; no Helicobacter organisms seen. B. Esophagus, biopsy: Small fragments of squamous epithelium within normal limits; no inflammation seen. C. Esophagus, middle, biopsy: Squamous epithelium within normal limits; no inflammation seen. 12/12/24: Here with family friend patrick. Reports wakes up stuffy nose and phlegm collected in the back of his throat. Has been taking famotidine with little help. Otherwise no issues swallowing food. [facility] Medical History Sleep apnea Myocardial infarction CVA (cerebral vascular accident) Aortic stenosis Chronic anticoagulation Peripheral vascular disease HIV disease Surgical History History of back surgery History of coronary artery stent placement Hx of colonoscopy History of esophagogastroduodenoscopy (EGD) Hx of cardiac catheterization Family History Mother No problems noted. Father No problems noted. Social History Alcohol intake: current Alcohol intake frequency: holidays/special occasions only Patient Tobacco Use Status: Never used Tobacco Review of Systems Const All systems reviewed & are unremarkable except as noted in HPI and below Physical Exam Vital Signs: Last Vital Signs Pulse 58 12/12/24 08:55 BP 160/70 H 12/12/24 08:55 BMI result Body Mass Index 33.3 No apparent distress Nonicteric Abdomen soft, nondistended Alert and oriented x3, normal gait Assessment & Plan Assessment & Plan (1) Esophageal dysmotility: Code(s): K22.4 - Dyskinesia of esophagus Category: Medical (2) Post-nasal drip: Code(s): R09.82 - Postnasal drip Category: Medical Plan CUrrently no dysphagia. Description of sx likely 2/2 PND. Trial of flonase and antihistamine advised. Pt was also advised to see PCP for further evaluation if minimal improvement in post nasal drip. PRN follow up with GI. Medications: Changed From cetirizine 10 mg PO DAILY To cetirizine 10 mg PO DAILY 90 days 90 tabs 0RF Refilled fluticasone propionate 50 mcg/actuation (Flonase Allergy Relief) administer into each nostril 2 sprays intranasal DAILY 30 days 16 grams 0RF Coding Level of Care Code Est Pt Level 3 (61054) Diagnoses Esophageal dysmotility K22.4 Post-nasal drip R09.82
--- OUTSIDE RECORDS SUMMARY | 2024-12-12 09:11 | XMS_ITS | Clinical Summary ---
Author Organization [facility] Address [address] [place] [address] Care Team Providers Care Supervisor Soldering Name Role Phone Angel Montelongo PA-C Primary Care Provider [phone] Source Comments PLEASE NOTE, if this patient [...] with no history of HIV-related illness ([facility]) TAKE ONE TABLET BY MOUTH [...] EVERY DAY^2R1 60 Tablet 11 024 Active ELIQUIS 5 mg tab TAKE ONE TABLET BY MOUTH TWICE A DAY ^1R1,1R4 60 Tablet 5 025 Active albuterol HFA 90 mcg/actuation inhalerIndicati ons:Cough, unspecified type INHALE TWO PUFFS BY MOUTH EVERY 4 HOURS NEEDED FOR WHEEZING (BULK) 8.5 g 3 025 Active hydrOXYzine HCL (ATARAX) 25 mg tabletIndicatio ns:Urticaria TAKE ONE TABLET BY MOUTH THREE TIMES A DAY NEEDED FOR ITCHING (VIAL) 30 Tablet 025 Active acetaminophen (TYLENOL) 325 mg tabletIndicatio ns:Acute right-sided low back pain without sciatica TAKE TWO TABLETS BY MOUTH EVERY 6 HOURS NEEDED FOR PAIN (VIAL) 60 Tablet 1 025 Active omeprazole (PRILOSEC) [address] capsule TAKE ONE CAPSULE BY MOUTH EVERY MORNING BEFORE BREAKFAST ^1R1 30 Capsule 5 025 Active famotidine (PEPCID) 40 mg tabletIndicatio ns:Post-nasal drip,Hiatal hernia Take 1 Tablet by mouth nightly at bedtime 90 Tablet 1 025 Active cetirizine (ZYRTEC) 10 mg tablet TAKE ONE TABLET BY MOUTH EVERY DAY ^1R4 30 Tablet 025 Active aspirin [address] tablet TAKE ONE TABLET BY MOUTH EVERY DAY ^1R2 30 Tablet 025 Active rosuvastatin (CRESTOR) 40 mg tablet TAKE ONE TABLET BY MOUTH EVERY DAY ^1R4 30 Tablet 025 Active mometasone (ELOCON) 0.1 % ointmentIndicat ions:Urticaria APPLY TO AFFECTED AREA(S) ONCE DAILY FOR 14 DAYS (BULK) 45 g 1 025 Active ezetimibe (ZETIA) 10 mg tablet TAKE ONE TABLET BY MOUTH EVERY DAY ^1R4 30 Tablet Active montelukast (SINGULAIR) 10 mg tablet TAKE ONE TABLET BY MOUTH EVERY EVENING ^1R4 30 Tablet Active FISH OIL 300-1,000 mg cap TAKE ONE CAPSULE BY MOUTH THREE TIMES A DAY ^1R1,1R2,1R4 90 Capsule Active metoprolol succinate XL (TOPROL-XL) 25 mg 24 hr tablet TAKE ONE TABLET BY MOUTH EVERY DAY ^1R4 30 Tablet Active mometasone (ELOCON) 0.1 % ointmentIndicat ions:Urticaria APPLY TO THE AFFECTED AREA(S) ONCE DAILY FOR 14 DAYS (BULK) 45 g 1 025 2024 Discontinued ezetimibe (ZETIA) 10 mg tablet TAKE ONE TABLET BY MOUTH EVERY DAY ^1R4 30 Tablet 025 2024 Discontinued cetirizine (ZYRTEC) 10 mg tablet TAKE ONE TABLET BY MOUTH EVERY DAY ^1R4 30 Tablet 025 2024 Discontinued rosuvastatin (CRESTOR) 40 mg tablet TAKE ONE TABLET BY MOUTH EVERY DAY ^1R4 30 Tablet 025 2024 Discontinued aspirin [address] tablet TAKE ONE TABLET BY MOUTH EVERY DAY ^1R2 30 Tablet 025 2024 Discontinued montelukast (SINGULAIR) 10 mg tablet TAKE ONE TABLET BY MOUTH EVERY EVENING ^1R4 30 Tablet 025 2024 Discontinued metoprolol succinate XL (TOPROL-XL) 25 mg 24 hr tablet TAKE ONE TABLET BY MOUTH EVERY DAY ^1R4 30 Tablet 025 2024 Discontinued FISH OIL 300-1,000 mg cap TAKE ONE CAPSULE BY MOUTH THREE TIMES A DAY ^1R1,1R2,1R4 90 Capsule 025 2024 Discontinued Active Problems Problem Noted Date Diagnosed Date Schatzki's ring 11/13/2024 Overview (11/13/2024): Upper endoscopy Hepatic steatosis 08/09/2024 Overview (08/09/2024): 08/01/24 CT chest Hiatal hernia 08/09/2024 Overview (08/09/2024): 07/2024 CT chest Atherosclerosis of coronary artery 08/09/2024 Overview (08/09/2024): 07/[address] Internal hemorrhoid 05/18/2023 Overview (05/18/2023): 10/08/22 Sigmoidoscopy History of [place] (myocardial infarction) 04/09/2023 Overview (04/09/2023): Has 2 stents from [place] AMD (age-related macular degeneration), bilatera l 04/09/2023 Overview (04/09/2023): Gets injections Primary open angle glaucoma (POAG) of both eyes, mild stage 04/09/2023 Benign prostatic hyperplasia without lower urinary tract symptoms 04/09/2023 Mild intermittent asthma without complication ([facility] HS-HCC) 04/09/2023 Other constipation 04/09/2023 Asymptomatic HIV infection, with no history of HIV-related illness (HCC-CMS) 06/17/1998 Overview (04/28/2023): HLA [id number] Negative 04/22/23 Encounters Date Type Department Care Team Description 11/30/2024 11:20 AM EDT Office Visit [address] [phone] Juanita Correa PA-C Asymptomatic HIV infection, with no history of HIV-related illness ([facility]) (Primary Dx); Immunization due; Post-nasal drip; Hiatal hernia from Last 3 Months Immunizations Immunization Administration Dates Next Due Flu, High Dose, 65y+, Fluzone High Dose 04/09/20 Hep B,adult,adjuvanted (HEPLISAV) 07/31/2024 INFLUENZA, SEASONAL, INJECTABLE 04/03/2013 Influenza (FLUZONE), high-dose, trivalent, PF Meningococcal Conjugate Quad rivalent (MenQuadfi), MenACWY-TT (MCV4) 11/04/2023 Moderna COVID-19 (Spikevax), Mrna, Lnp-s, Pf, 50 Mcg/0.5 Ml, 12yr+ 07/07/2023 PNEUMOCOCCAL CONJUGATE PCV 20 (Prevnar) 09/28/19 24 Pfizer COVID-19 (Comirnaty), Mrna, Lnp-s, Pf, Deondre-sucrose, 30 Mcg/0.3 Ml, 12yr+ 04/17/2024 TDAP 09/28/2023 ZOSTER VACCINE, RECOMBINANT (SHINGRIX) ,07/31/2024 Social History Tobacco Use Types Packs/Day Years [...] Sign Reading Time Taken Comments Blood Pressure 130/70 11/30/2024 10:49 AM EDT Pulse 62 11/30/2024 10:49 AM EDT Temperature 36.8 ??C (98.3 ??F) 11/30/2024 10:49 AM E DT Respiratory Rate 16 11/30/2024 10:49 AM EDT Oxygen Saturation 96% 11/30/2024 10:49 AM EDT Inhaled Oxygen Concentration - - Weight 89.8 kg (198 lb) 11/30/2024 10:49 AM EDT Height 162.6 cm (5' 4 ) 11/30/2024 10:49 AM EDT Body Mass Index 33.99 11/30/2024 10:49 AM EDT Plan of Treatment Upcoming Encounters Date Type Department Care Team (Late st Contact Info) Description 01/01/2025 11:00 AM EDT Office Visit [facility] [address] [place] [phone] Angel Montelongo PA-C [address], [place] [id number] Health Maintenance Due Date Last Done Comments Dental Perio Charting 1942 Advanced Care Planning 1940 Medicare Annual Wellness Visit 1960 Imm-Meningococcal (2 - Risk 2-dose series) 12/30/2023 11/04/2023 Imm-Hepatitis B (2 of 2 - CpG risk 2-dose series) 08/28/2024 07/31/2024 Falls Prevention 09/27/2024 09/28/2023 Lipid Screening 09/27/2024 09/28/2023, 04/22/2023 [id number] ( season) 2024 04/17/2024, 07/07/2023 Dental Examination 02/17/2025 02/16/2024 Dental Prophy 02/17/2025 02/16/2024 Imm-Hepatitis A (1 of 2 - Risk 2-dose series) 04/17/2025 Postponed from 1961 (Patient postponement) Hypertension Screening (#1) 11/30/2025 Tobacco Screening 11/30/2025 11/30/2024 Diabetes Screening 12/01/2027 11/30/2024, 1 , 09/28/2023, Additional history exists Dental FMX/Pano 02/17/2029 02/16/2024 Imm-DTaP/Tdap/Td (2 - Td or Tdap) 09/27/2033 09/28/2023 Hepatitis B Screening Completed 09/28/2023 Imm-Pneumococcal 65+ Completed 09/28/2023 Imm-Influenza Completed 04/17/2024, 03/19, 04/03/2013 Alcohol and Drug Screen Completed 07/31/19, 09/28/2023, 06/28/2023 Depression Annual Screen Completed 07/31/2024, 09/15 Imm-Zoster, Recombinant Completed 11/30/2024, 07/31 Imm-HIB Aged Out No longer eligi ble based on patient's age to complete this topic Procedures Procedure Name Priority Date/Time Associated Diagnosis Comments RFLX - PLATELET ESTIMATION Routine 11/30/2024 11:02 AM EDT HIV-1 RNA QUANT REAL TIME PCR, PLASMA Routine 11/30/2024 11:02 AM EDT Asymptomatic HIV infection, with no history of HIV-related illness ([facility]) COMPREHENSIVE METABOLIC PANEL Routine 11/30/2024 11:02 AM EDT Asymptomatic HIV infection, with no history of HIV-related illness ([facility]) LYMPHOCYTE SUBSET PANEL 5 Routine 11/30/2024 11:02 AM EDT Asymptomatic HIV infection, with no history of HIV-related illness ([facility]) BLOOD COUNT COMPLETE AUTO&AUTO DIFRNTL WBC Routine 11/30/2024 11:02 AM EDT Asymptomatic HIV infection, with no history of HIV-related illness ([facility]) UPPER GI ENDOSCOPY (EGD) SCANNED DOCUMENT 11/08/2024 3:00 AM EDT HEALTH HISTORY SCANNED DOCUMENT 10/02/2024 3:00 AM EDT PANORAMIC RADIOGRAPHIC IMAGE Routine 02/16/2024 10:20 AM EDT Encounter for dental examination Defective dental adventism Caries of enamel (incipient) Caries PROPHYLAXIS - [...] Recently Relevant to Health Maintenance Results * (ABNORMAL) RFLX - PLATELET ESTIMATION Routine (11/30/2024 11:02 AM EDT) Pathologist [facility] PLATELET ESTIMATION DECREASED (A) [facility] [employer] 11/30/2024 11:0 2 AM EDT 11/30/2024 11:03 AM EDT Juanita Correa PA-C LAB - BLOOD DRAW Edited Resu lt - Final [facility] [address] [place] [address], [facility] [address] * LYMPHOCYTE SUBSET PANEL 5 Routine (11/30/2024 11:02 AM EDT) Pathologist [facility] % CD4 (HELPER CELLS) 47 30 - 61 % [facility] ABSOLUTE CD4+ CELLS 880 490 - 1,740 cells/uL [facility] [place] ABSOLUTE LYMPHOCYTES 1,862 850 - 3,900 cells/uL [facility] Blood Blood / Unknown 11/30/2024 1 1:02 AM EDT 11/30/2024 11:03 AM EDT us Juanita Correa PA-C LAB - BLOOD DRAW Final Resul t [facility] [address] [place], [place] , [facility]/[place] [address] [place], [place] * (ABNORMAL) HIV-1 RNA QUANT REAL TIME PCR, PLASMA Routine (11/30/2024 11:02 AM EDT) [facility] COPIES/ML 45(H) NOT DETECTED copies/mL [facility] LOG COPIES/ML 1.65(H) NOT DETECTED Log copies/mL [facility] Comment: This test was performed using Real-Time Polymerase Chain Reaction. Reportable Range: 20 copies/mL to 10,000,000 copies/mL (1.30 log copies/mL to 7.00 log copies/mL). Blood Blood / Unknown 11/30/2024 1 1:02 AM EDT 11/30/2024 11:03 AM EDT Juanita Correa PA-C LAB - BLOOD DRAW Edited Resu lt - Final [facility] [address] [address], [facility] [employer] [address] [place] [id number] * (ABNORMAL) BLOOD COUNT COMPLETE AUTO&AUTO DIFRNTL WBC Routine (11/30/2024 11:02 AM EDT) [facility] WHITE BLOOD CELL COUNT 6.0 3.8 - 10.8 Thousand/ uL [facility] [employer] RED BLOOD CELL COUNT 4.47 4.20 - 5.80 Million/u L [facility] [employer] HEMOGLOBIN 13.8 13.2 - 17.1 g/dL [facility] HEMATOCRIT 42.0 38.5 - 50.0 % [facility] MCV 94.0 80.0 - 100.0 fL [facility] MCH 30.9 27.0 - 33.0 pg [facility] MCHC 32.9 32.0 - 36.0 g/dL [facility] [employer] Comment: For adults, a slight decrease in the calculated MCHC value (in the range of 30 to 32 g/dL) is most likely not clinically significant; however, it should be interpreted with caution in correlation with other red cell parameters and the patient's clinical condition. RDW 12.5 11.0 - 15.0 % [facility] [employer] PLATELET COUNT 124(L) 140 - 400 Thousand/ uL [facility] [employer] MPV 11.4 7.5 - 12.5 fL [facility] ABSOLUTE NEUTROPHILS 3,324 1,500 - 7,800 cells/uL [facility] [employer] ABSOLUTE LYMPHOCYTES 1,776 850 - 3,900 cells/uL [facility] [employer] ABSOLUTE MONOCYTES 648 200 - 950 cells/uL [facility] ABSOLUTE EOSINOPHILS 192 15 - 500 cells/uL [facility] ABSOLUTE BASOPHILS 60 0 - 200 cells/uL [facility] [employer] NEUTROPHILS PCT 55.4 % [facility] LYMPHOCYTES 29.6 % [facility] MONOCYTES 10.8 % [facility] EOSINOPHILS 3.2 % [facility] BASOPHILS 1.0 % [employer] Blood Blood / Unknown 11/30/2024 1 1:02 AM EDT 11/30/2024 11:03 AM EDT us Juanita Correa PA-C LAB - BLOOD DRAW Edited Resu lt - Final [facility] [facility] [address] [address], [facility] [employer] [address] [place] [address] * (ABNORMAL) COMPREHENSIVE METABOLIC PANEL Routine (11/30/2024 11:02 AM EDT) [facility] Signature GLUCOSE 90 65 - 99 mg/dL [facility] [employer] Comment: ?Fasting reference interval UREA NITROGEN (BUN) 9 7 - 25 mg/dL [facility] CREATININE (blood) 0.96 0.70 - 1.22 mg/dL [facility] EGFR 79 > OR = 60 mL/min/1. 73m2 [facility] BUN/CREATININE RATIO SEE NOTE: [facility] [employer] Comment: ?? Not Reported: BUN and Creatinine are within ?? reference range. ? SODIUM 138 135 - 146 mmol/L [facility] POTASSIUM 3.8 3.5 - 5.3 mmol/L [facility] CHLORIDE 101 98 - 110 mmol/L [facility] CARBON DIOXIDE 28 20 - 32 mmol/L [facility] CALCIUM 8.7 8.6 - 10.3 mg/dL [facility] PROTEIN, TOTAL 6.9 6.1 - 8.1 g/dL [facility] ALBUMIN 4.0 3.6 - 5.1 g/dL [facility] GLOBULIN 2.9 1.9 - 3.7 g/dL (calc) [facility] ALBUMIN/GLOBULI N RATIO 1.4 1.0 - 2.5 (calc) [facility] BILIRUBIN, TOTAL 0.7 0.2 - 1.2 mg/dL [facility] ALKALINE PHOSPHATASE 115 35 - 144 U/L [facility] AST 46(H) 10 - 35 U/L [facility] ALT 26 9 - 46 U/L [facility] Blood Blood / Unknown 11/30/2024 1 1:02 AM EDT 11/30/2024 11:03 AM EDT Juanita Correa PA-C LAB - BLOOD DRAW Edited Resu lt - Final [facility] [address], [employer] [address] * UPPER GI ENDOSCOPY (EGD) SCANNED DOCUMENT (11/08/2024 3:00 AM EDT) 11/08/2024 3:00 AM EDT Angel Montelongo PA-C SCAN PROCEDURES Final Result * HEALTH HISTORY SCANNED DOCUMENT (10/02/2024 3:00 AM EDT) 10/02/2024 3:00 AM EDT [facility] Provider Default SCAN OTHER ORDERS Final Re sult * HEPATITIS B SURF ANTIBODY HBSAB (09/28/2023 10:49 AM EDT) HEPATITIS B SURFACE ANTIBODY QL NON-REACT KANNAN NON-REACT KANNAN [facility] [employer] Blood Blood / Unknown 09/28/2023 1 0:49 AM EDT 09/28/2023 10:50 AM EDT Narrative [facility] - 09/29/2023 6:17 AM EDT FASTING:NO us Angel Montelongo PA-C LAB - BLOOD DRAW Final Resul t [facility] [address] [address], [facility] [employer] [address] [place] [address] * (ABNORMAL) LIPID PANEL (09/28/2023 10:49 AM EDT) CHOLESTEROL, TOTAL 158 <200 mg/dL [employer] [employer] [facility] HDL CHOLESTEROL 41 > OR = 40 mg/dL [facility] TRIGLYCERIDES 212(H) <150 mg/dL [facility] Comment: If a non-fasting specimen was collected, consider repeat triglyceride testing on a fasting specimen if clinically indicated. Shahbaz et al. J. of Clin. Lipidol. 2015;9:129-169. LDL-CHOLESTEROL 86 99 mg/dL (calc) [facility] Comment: Reference range: <100 Desirable range <100 mg/dL for primary prevention; ?? <70 mg/dL for patients with CHD or diabetic patients with > or = 2 CHD risk factors. LDL-C is now calculated using the Tyler-Elmer calculation, which is a validated novel method providing better accuracy than the Friedewald equation in the estimation of LDL-C. Tyler SIFUENTES et al. EDILBEROT. 2013;310(19): 7776-7152 (http://education.SchemaLogic/faq/GWJ233) CHOL/HDLC RATIO 3.9 <5.0 (calc) [facility] NON-HDL CHOLESTEROL 117 <130 mg/dL (calc) [facility] Comment: For patients with diabetes plus 1 major ASCVD risk factor, treating to a non-HDL-C goal of <100 mg/dL (LDL-C of <70 mg/dL) is considered a therapeutic option. Blood Blood / Unknown 09/28/2023 1 0:49 AM EDT 09/28/2023 10:50 AM EDT Narrative [facility] - 09/29/2023 6:17 AM EDT FASTING:NO us Angel Montelongo PA-C LAB - BLOOD DRAW Final Resul t [facility] [address] [address], [facility] [address] [place] [address] from Last 3 Months or Most Recently Relevant to Health Maintenance Insurance [facility] Member Subscriber Plan / Payer ( fective 2023-Present) Name:Mor Martinez Relation to Subscriber:Self Name:Mor Martinez Payer ID:[id number] Group ID:Not on file Type:[employer] Address: [address] [place] [address] [facility] Care Teams Supervisor Soldering Relationship Specialty Start Date End Date Angel Montelongo PA-C [address] [place] [address] PCP - General FAMILY MEDICINELEANNE 04/07/23
== END 2024-12-12 10:45 | disposition home or self-care (01) ==
LOC: HO.HGI 08:51
PROVIDERS: PCP Physician Assistant; Visit Provider Internal Medicine
DX: K22.4 Dyskinesia of esophagus (principal); R09.82 Postnasal drip
CPT/HCPCS: 99213

== ENCOUNTER → 2024-12-12 08:51 | Outpatient (BNVA) | payer OTHER, SELFPAY | PROVIDERS: PCP Physician Assistant; Visit Provider Internal Medicine | DX: K22.4 Dyskinesia of esophagus (principal); R09.82 Postnasal drip | CPT/HCPCS: 99212 ==